=== PATIENT | male | born 1970 | race Caucasian/White ===

== ENCOUNTER 2020-01-26 09:25 | Emergency (ER) | payer MEDICARE, SELFPAY ==
[2020-01-26 09:26] VITALS: BP 131/88; PULSE 80; RESP 16; TEMP 36.8; BMI 32.8
--- NOTE | 2020-01-26 10:02 | CT_ITS ---
STUDY: CT ABDOMEN AND PELVIS WITH CONTRAST REASON FOR EXAM: Male, 49 years old. ABD PAIN and amp; DISTENTION -- LAST BM X3 WEEKS AGO, RECTAL PAIN RADIATION DOSAGE (If Supplied By Facility): CTDIvol = ( 15.22 ) mGy, DLP = ( 1283.83 ) mGycm TECHNIQUE: Transaxial images were obtained from the dome of the diaphragm to the symphysis pubis without oral contrast. Oral and amp; IV Gastrografin and amp; 100mL Isovue-300 was administered. Sagittal and coronal images were reconstructed. Individualized dose optimization techniques were used for this CT. COMPARISON: None. FINDINGS: The visualized lung bases are unremarkable. The visualized portions of the heart are within normal limits. Normal liver. Status post cholecystectomy. No significant dilatation of the extrahepatic biliary system. Normal spleen. Normal pancreas. Normal bilateral adrenal glands. Normal right kidney. Normal left kidney. Normal visualized stomach. Normal small intestine. 3.4 cm fatty nodule at the proximal ascending colon near the ileocecal valve. The appendix is visualized and appears normal. Normal abdominal aorta. Normal inferior vena cava. Normal retroperitoneum. Normal urinary bladder. Normal abdominal wall. Mild vertebral scoliosis. CT/Abdomen/Pelvis WITH Contrast IMPRESSION: No acute pathology of the abdomen and pelvis. Prominent fatty nodule within the colon near the ileocecal valve. Electronically Signed: Eloy Tlaavera DO at 13:06 EDT Tel [phone], Service support ,
--- NOTE | 2020-01-26 10:04 | ED.VIS.GEN ---
History of Present Illness Chief Complaint: Constipation Informant: Patient Narrative: Patient states that 3 weeks ago he went to outside hospital and they did nothing for me. He states that no tests were run and they did not give him anything. He tells me that his abdomen is distended. He states he has not had any bowel movement for 3 weeks. He denies any leakage of liquid. He states he has been passing gas. He reports being a diabetic. When I look at his bag of medications I see that on the he filled prescriptions of hydrocodone, Levaquin, and doxycycline from the outside hospital. He then states will maybe it has not been 3 weeks maybe it is only been a week. He apologizes and states he just does not know. He notes rectal pressure. I was able to obtained notes from the outside hospital. At that point he was complaining of discomfort in the scrotal region. Clinically had some mild tenderness to the testicles and was treated for orchitis using the Levaquin and doxycycline. Past Medical History - Allergies and Home Meds Allergies/Adverse Reactions: Allergies No Known Allergies Allergy (Verified 01/26/20 09:29) Primary Care Physician: Care Physician,No Primary [Primary Care Provider] - Review of Systems General: Denies: Chills, Fever, Sweats Eyes: Denies: Visual changes - bilaterally, Diplopia ENT: Denies: Rhinorrhea, Sore throat Cardiovascular: Denies: Chest pain, Palpitations Respiratory: Denies: Dyspnea, Cough, Dyspnea on exertion Gastrointestinal: Reports: Abdominal pain, Constipation. Denies: Nausea, Vomiting, Diarrhea, Melena, Hematochezia Genitourinary: Denies: Dysuria, Hematuria, Frequency Musculoskeletal: Denies: Back pain, Extremity Pain Skin: Denies: Rash, Wounds Neurological: Denies: Headache, Weakness, Numbness Physical Exam Vital Signs/Narrative: Vital Signs Temp Pulse Resp BP 01/26/20 09:26 98.3 F 80 16 131/88 H Inital Vital Signs reviewed: Yes General: Well nourished, Well developed, Obese, No Acute Distress Head: Normocephalic, Atraumatic Eyes: Perrl, EOMI ENT: Moist mucous membranes, No rhinorrhea Neck: Supple, Nontender Cardiovascular: Regular rate, Regular rhythm, No murmurs Respiratory: No distress, CTA bilaterally, Chest nontender Abdomen: Soft, Nontender, Normal bowel sounds, - - Abdomen feels distended. However there is no tympany to percussion. : - - Testicles appear normal in size and lie. There is no erythema. There are no masses. They are nontender. Back: Nontender, Normal Inspection Extremities: Nontender, No edema Skin: Normal color, No rash Neurological: Alert, Oriented x3, Cranial nerves II-XII grossly intact, Normal Strength, Normal Sensation Psychological: Normal affect, Normal Mood Diagnostic/Tx/Re-eval Clinical Impression(s) from Imaging Studies Abdomen/Pelvis CT 01/26/20 10:02 IMPRESSION: No acute pathology of the abdomen and pelvis. Prominent fatty nodule within the colon near the ileocecal valve. Electronically Signed: Eloy Talavera DO at 13:06 EDT Tel [phone], Service support , Laboratory Last Values WBC 9.9 K/mm3 (4.4-11.0) 01/26/20 10:20 RBC 5.10 M/mm3 (4.6-6.2) 01/26/20 10:20 Hgb 16.5 g/dL (13.0-16.5) 01/26/20 10:20 Hct 48.7 % (40-54) 01/26/20 10:20 MCV 95.5 fL (80-94) H 01/26/20 10:20 MCH 32.4 pg (27.0-32.0) H 01/26/20 10:20 MCHC 33.9 g/dL (32-36) 01/26/20 10:20 RDW Std Deviation 41.6 fl (35.1-43.9) 01/26/20 10:20 RDW Coeff of Kary 11.9 % (11.6-14.6) 01/26/20 10:20 Plt Count 207 K/mm3 (150-450) 01/26/20 10:20 MPV 9.9 fl (6.2-12.0) 01/26/20 10:20 Immature Gran % (Auto) 0.400 % (0.0-0.9) 01/26/20 10:20 Neut % (Auto) 45.2 % (47-70) L 01/26/20 10:20 Lymph % (Auto) 41.2 % (19-41) H 01/26/20 10:20 [place] % (Auto) 10.1 % (0-10) H 01/26/20 10:20 Eos % (Auto) 2.5 % (0-5) 01/26/20 10:20 Baso % (Auto) 0.6 % (0-1) 01/26/20 10:20 Absolute Neuts (auto) 4.5 X10^3/uL (2.0-7.7) 01/26/20 10:20 Absolute Lymphs (auto) 4.07 X10^3/uL (0.83-4.51) 01/26/20 10:20 Nucleated RBC % 0 % (0-5) 01/26/20 10:20 Sodium 136 mmol/L (136-145) 01/26/20 10:20 Potassium 4.2 mmol/L (3.5-5.1) 01/26/20 10:20 Chloride 102 mmol/L (98-107) 01/26/20 10:20 Carbon Dioxide 26.0 mmol/L (21.0-32.0) 01/26/20 10:20 Anion Gap 8 (5-15) 01/26/20 10:20 BUN 12 mg/dL (7-18) 01/26/20 10:20 Creatinine 0.85 mg/dL (0.70-1.30) 01/26/20 10:20 Estim Creat Clear Calc 102.82 ml/min 01/26/20 10:20 Est GFR (MDRD) Af Amer 123 mL/min (>60) 01/26/20 10:20 Est GFR (MDRD) Non-Af 102 mL/min (>60) 01/26/20 10:20 BUN/Creatinine Ratio 14.1 RATIO (10-20) 01/26/20 10:20 Glucose 287 mg/dL (74-106) H 01/26/20 10:20 Calcium 9.2 mg/dL (8.5-10.1) 01/26/20 10:20 Total Bilirubin 0.40 mg/dL (0.20-1.00) 01/26/20 10:20 AST 31 U/L (15-37) 01/26/20 10:20 ALT 70 U/L (16-61) H 01/26/20 10:20 Alkaline Phosphatase 61 U/L (45-117) 01/26/20 10:20 Total Protein 7.2 g/dL (6.4-8.2) 01/26/20 10:20 Albumin 3.6 g/dL (3.2-5.0) 01/26/20 10:20 Globulin 3.6 g/dL (2.2-4.2) 01/26/20 10:20 Albumin/Globulin Ratio 1.0 RATIO (0.9-2.4) 01/26/20 10:20 Lipase 203 U/L (73-393) 01/26/20 10:20 Urine Color Yellow (Yellow) 01/26/20 10:18 Urine Clarity Clear (Clear) 01/26/20 10:18 Urine pH 5.0 (5.0 - 8.0) 01/26/20 10:18 Ur Specific [place] 1.025 (1.002-1.030) 01/26/20 10:18 Urine Protein Negative mg/dl (Negative) 01/26/20 10:18 Urine Glucose (UA) 1000 mg/dl (Normal) H 01/26/20 10:18 Urine Ketones 5 mg/dl (Negative) H 01/26/20 10:18 Urine Occult Blood Negative /ul (Negative) 01/26/20 10:18 Urine Nitrite Negative (Negative) 01/26/20 10:18 Urine Bilirubin Negative mg/dL (Negative) 01/26/20 10:18 Urine Urobilinogen Normal mg/dl (Normal) 01/26/20 10:18 Ur Leukocyte Esterase Negative /ul (Negative) 01/26/20 10:18 Urine RBC 0 SEEN /hpf (0-5) 01/26/20 10:18 Urine WBC 0 SEEN /hpf (0-5) 01/26/20 10:18 Ur Squamous Epith Cells 0-5 SEEN /hpf (0-5) 01/26/20 10:18 Urine Bacteria 0 SEEN /hpf (None Seen) 01/26/20 10:18 Urine Mucus 0 SEEN /hpf (<or=2+) 01/26/20 10:18 - Medical Decision Making Basic labs were normal. Urinalysis normal. CT the abdomen pelvis is negative. Repeat examination the patient states he is feeling lower abdominal cramping. Think the patient needs to have a bowel movement. I will write for some magnesium citrate. Of asked that he follow-up with primary care. ED Disposition - Plan for ED Patient: Disposition: Home or Assisted Living Diagnosis: Abdominal pain, Constipation Instructions: ED Constipation Prescriptions: Magnesium Citrate [Citrate Of Magnesia] 300 ml PO X1 #2 bottle Prescription Printed Additional Instructions: Follow-up with your primary care if symptoms have not resolved after bowel movement
[2020-01-26] MEDS: 0.9% Normal Saline 1,000 ML 125 ML IV (10:21)
[2020-01-26 10:25] LABS: Absolute Lymphocyte Count 4.07 X10^3/uL (0.83-4.51); Absolute Neutrophil Count 4.5 X10^3/uL (2.0-7.7); Basophil# 0.06 X10^3/uL; Basophil% 0.6 % (0-1); Eosinophil# 0.25 X10^3/uL; Eosinophils% 2.5 % (0-5); Hematocrit 48.7 % (40-54); Hemoglobin 16.5 g/dL (13.0-16.5); Lymphocyte # 4.07 X10^3/ul (4.0); Lymphocyte % 41.2 % (19-41); Mean Corp Hgb Conc 33.9 g/dL (32-36); Mean Corpuscular Hgb 32.4 pg (27.0-32.0); Mean Corpuscular Volume 95.5 fL (80-94); Mean Platelet Vol. 9.9 fl (6.2-12.0); Monocyte% 10.1 % (0-10); NRBC Flagged by Analyzer 0 % (0-5); Neutrophil # 4.46 X10^3/uL (2.7-7.7); Neutrophil % 45.2 % (47-70); Platelet Count 207 K/mm3 (150-450); RBC Distribution Width CV 11.9 % (11.6-14.6); RBC Distribution Width SD 41.6 fl (35.1-43.9); White Blood Count 9.9 K/mm3 (4.4-11.0)
[2020-01-26 10:31] LABS: Bacteria 0 SEEN /hpf (None Seen); Mucous, Urine 0 SEEN /hpf (<or=2+); Red Blood Cells-Urine 0 SEEN /hpf (0-5); White Blood Cells 0 SEEN /hpf (0-5)
[2020-01-26 10:35] LABS: Color, Urine Yellow (Yellow); Glucose, Dipstick 1000 mg/dl (Normal); Ketone-Dipstick 5 mg/dl (Negative); Leukocyte Esterase-Dipstick Negative /ul (Negative); Nitrite-Dipstick Negative (Negative); Occult Blood-Urine Negative /ul (Negative); Protein-Dipstick Negative (Negative); Specific Gravity, Urine 1.025 (1.002-1.030); Urine Bilirubin Dipstick Negative (Negative); Urine Clarity Clear (Clear); Urine Urobilinogen Normal (Normal)
[2020-01-26 10:45] LABS: AST(SGOT) 31 U/L (15-37); Alanine Aminotransfer ALT/SGPT 70 U/L (16-61); Albumin, Serum 3.6 g/dL (3.2-5.0); Alkaline Phosphatase 61 U/L (45-117); Anion Gap 8 (5-15); BUN 12 mg/dL (7-18); BUN/Creat Ratio 14.1 RATIO (10-20); Calcium,Total 9.2 mg/dL (8.5-10.1); Chloride 102 mmol/L (98-107); Creatinine, Serum 0.85 mg/dL (0.70-1.30); EST Glomerular Filtration Rate 102 mL/min (>60); Est Glom Filt Rate - Afr Amer 123 mL/min (>60); Estimated Creatinine Clearance 102.82 ml/min; Globulin 3.6 g/dL (2.2-4.2); Glucose 287 mg/dL (74-106); Lipase 203 U/L (73-393); Potassium 4.2 mmol/L (3.5-5.1); Protein, Total 7.2 g/dL (6.4-8.2); Sodium Level 136 mmol/L (136-145)
[2020-01-26 10:48] LABS: Squamous Epithelial Cells - UA 0-5 SEEN /hpf (0-5)
[2020-01-26 11:16] VITALS: BP 139/98; PULSE 87; RESP 20; O2SAT 96
[2020-01-26 13:00] VITALS: BP 137/98; PULSE 91; RESP 18; O2SAT 97
== END 2020-01-26 13:45 | disposition home or self-care (01) ==
PROVIDERS: Emergency Provider Emergency Medicine
DX: K59.00 Constipation, unspecified (principal); R10.9 Unspecified abdominal pain; E11.9 Type 2 diabetes mellitus without complications; Z79.84 Long term (current) use of oral hypoglycemic drugs
CPT/HCPCS: 74177; 80053; 81001; 83690; 85025; 96360; 96361; 99283; J7030; Q9967

== ENCOUNTER 2021-01-01 09:44 | Emergency (ER) | payer MEDICARE, MEDICAID, SELFPAY ==
[2021-01-01 09:44] VITALS: BP 129/91; PULSE 92; RESP 24; TEMP 36; O2SAT 96; BMI 31.7
--- NOTE | 2021-01-01 10:16 | CT_ITS ---
STUDY: CT ABDOMEN AND PELVIS WITH CONTRAST REASON FOR EXAM: Male, 50 years old. Abd pain, diffuse RADIATION DOSAGE (If Supplied By Facility): CTDIvol = ( 17.87 ) mGy, DLP = ( 1246.23 ) mGycm TECHNIQUE: Transaxial images were obtained from the dome of the diaphragm to the symphysis pubis without oral contrast. IV 100mL Isovue-300 was administered. Sagittal and coronal images were reconstructed. Individualized dose optimization techniques were used for this CT. COMPARISON: Comparison is made with prior study dated 01/26/2020. FINDINGS: The visualized lung bases are unremarkable. The visualized portions of the heart are within normal limits. There is decreased attenuation of the liver consistent with steatosis. There are surgical clips in the gallbladder fossa consistent with a prior cholecystectomy. Borderline splenomegaly. Normal pancreas. Normal bilateral adrenal glands. Normal right kidney. Normal left kidney. Normal visualized stomach. Normal small intestine. Stable 3 cm x 3 cm rounded fat-containing nodular density in the cecum at the level of the ileocecal valve. This may represent a lipoma or villous adenoma. The appendix is visualized and appears normal. Normal abdominal aorta. Normal inferior vena cava. Normal retroperitoneum. Normal urinary bladder. Normal abdominal wall. Mild levoscoliosis. CT/Abdomen/Pelvis W IV Cont ONLY IMPRESSION: Stable 3 cm x 3 cm fat-containing nodule in the cecum at the level of the ileocecal valve. Clinical correlation is recommended. Electronically Signed: Zheng Alfaro MD at 11:26 EDT , Service support ,
--- NOTE | 2021-01-01 10:26 | EDS_ITS ---
HPI HPI - GI History of Present Illness Chief Complaint: Abd Pain Informant: patient Narrative Narrative: Patient is a 50-year-old male with history of hypertension, diabetes mellitus and hyperlipidemia presenting with abdominal distention and pain. Patient states he has had worsening distention and abdominal pain for the past 4 to 5 days. He states he feels short of breath and is not hungry because he still uncomfortable. He states the pain is diffuse but slightly worse on the right side. He is never had this happen before. He denies any nausea, vomiting or significant change in bowel habits. He notes he did have diarrhea couple days ago but it seems to resolved. [place] any black or blood in stool. Does not drink alcohol. Has had prior bilateral inguinal hernia repair remotely. Denies any fever or chills. Denies any chest pain but does feel like there is pressure because of his abdomen being distended. No other complaints at this time. [facility] Medical History (Updated 01/01/21 @ 13:[address] Irina Chicas, DO) Diabetes mellitus type 2 in obese Home Medications atorvastatin 20 mg PO QHS 01/26/20 [History Last Taken Unknown] fenofibrate nanocrystallized 145 mg PO DAILY 01/26/20 [History Last Taken Unknown] glimepiride 4 mg PO DAILY 01/26/20 [History Last Taken Unknown] lisinopril 2.5 mg PO DAILY 01/26/20 [History Last Taken Unknown] metformin 1,000 mg PO BID 01/26/20 [History Last Taken Unknown] dicyclomine 20 mg PO TID PRN #20 tab 01/01/21 [Rx Last Taken Unknown] ondansetron HCl [Zofran] 4 mg PO Q8H PRN #14 tab 01/01/21 [Rx Last Taken Unknown] Allergy/AdvReac Type Severity Reaction Status Date / Time No Known Allergies Allergy Verified 01/01/21 09:47 Surgical History (Updated 01/01/21 @ 10:20 by Tin Louise) History of cholecystectomy History of hernia repair History of uvulectomy Hx of tonsillectomy Social History Smoking Status: Never smoker EXAM Physical Exam Const Vital Signs: 01/01/21 09:44 Temperature 96.8 F L Temperature Source Temporal Pulse Rate 92 Respiratory Rate 24 H Blood Pressure 129/91 H Blood Pressure Mean 103 Pulse Ox 96 Oxygen Delivery Method Room Air [facility] Lab Data Labs: Laboratory Results - last 24 hr 01/01/21 01/01/21 01/01/21 10:30 10:30 10:30 WBC 8.8 RBC 5.05 Hgb 15.8 Hct 47.1 MCV 93.3 MCH 31.3 MCHC 33.5 RDW Std Deviation 40.4 RDW Coeff of Kary 11.8 Plt Count 225 MPV 9.5 Immature Gran % (Auto) 0.300 Neut % (Auto) 54.7 Lymph % (Auto) 33.0 [place] % (Auto) 9.0 Eos % (Auto) 2.3 Baso % (Auto) 0.7 Absolute Neuts (auto) 4.8 Absolute Lymphs (auto) 2.90 Nucleated RBC % 0 Sodium 135 L Potassium 4.1 Chloride 103 Carbon Dioxide 29.0 Anion Gap 3 L BUN 11 Creatinine 0.81 Estim Creat Clear Calc 110.32 Est GFR (MDRD) Af Amer 131 Est GFR (MDRD) Non-Af 108 BUN/Creatinine Ratio 13.6 Glucose 235 H Calcium 8.8 Total Bilirubin 0.60 Direct Bilirubin 0.18 AST 41 H ALT 85 H Alkaline Phosphatase 57 B-Natriuretic Peptide < 2.0 Total Protein 7.1 Albumin 3.7 Globulin 3.4 Lipase 78 Urine Color Urine Clarity Urine pH Ur Specific [place] Urine Protein Urine Glucose (UA) Urine Ketones Urine Occult Blood Urine Nitrite Urine Bilirubin Urine Urobilinogen Ur Leukocyte Esterase Urine RBC Urine WBC Ur Squamous Epith Cells Urine Bacteria Urine Mucus 01/01/21 10:41 WBC RBC Hgb Hct MCV MCH MCHC RDW Std Deviation RDW Coeff of Kary Plt Count MPV Immature Gran % (Auto) Neut % (Auto) Lymph % (Auto) [place] % (Auto) Eos % (Auto) Baso % (Auto) Absolute Neuts (auto) Absolute Lymphs (auto) Nucleated RBC % Sodium Potassium Chloride Carbon Dioxide Anion Gap BUN Creatinine Estim Creat Clear Calc Est GFR (MDRD) Af Amer Est GFR (MDRD) Non-Af BUN/Creatinine Ratio Glucose Calcium Total Bilirubin Direct Bilirubin AST ALT Alkaline Phosphatase B-Natriuretic Peptide Total Protein Albumin Globulin Lipase Urine Color Yellow Urine Clarity Clear Urine pH 5.0 Ur Specific [place] 1.025 Urine Protein Negative Urine Glucose (UA) 1000 H Urine Ketones 5 H Urine Occult Blood Negative Urine Nitrite Negative Urine Bilirubin Negative Urine Urobilinogen Normal Ur Leukocyte Esterase Negative Urine RBC 0 SEEN Urine WBC 0 SEEN Ur Squamous Epith Cells 0 SEEN Urine Bacteria 0 SEEN Urine Mucus 0 SEEN Radiography Diagnostic Testing: Radiology Impression Abdomen/Pelvis CT 01/01/21 10:16 IMPRESSION: Stable 3 cm x 3 cm fat-containing nodule in the cecum at the level of the ileocecal valve. Clinical correlation is recommended. Electronically Signed: Zheng Alfaro MD at 11:26 EDT , Service support , Discharge Plan Triage Chief Complaint: Abd Pain ED Provider: Irina Chicas Dx/Rx/DC Orders Clinical Impression: Abdominal pain Instructions: ED Unknown Causes of Abdominal ... Prescriptions: New ondansetron HCl [Zofran] 4 mg tablet 4 mg PO Q8H PRN (Reason: nausea and vomiting) Qty: 14 RF: 0 dicyclomine 20 mg tablet 20 mg PO TID PRN (Reason: abdominal pain ) Qty: 20 RF: 0 No Action atorvastatin 20 MG tablet 20 mg PO QHS RF: 0 metformin 1,000 MG tablet 1,000 mg PO BID RF: 0 glimepiride 4 MG tablet 4 mg PO DAILY RF: 0 lisinopril 2.5 MG tablet 2.5 mg PO DAILY RF: 0 fenofibrate nanocrystallized 145 MG tablet 145 mg PO DAILY RF: 0 Primary Care Provider: Bandar Wooten Referrals: Bandar Wooten MD [Primary Care Provider] - Norma Hernandez MD [STAFF PHYSICIAN] - Activity Restrictions/Additional Instructions: Please follow-up with the surgeon you were referred to today for further evaluation of a mass in your colon. Follow with your primary care doctor for further control of your blood glucose. Disposition Disposition: Home, self care
[2021-01-01 10:37] LABS: Absolute Neutrophil Count 4.8 X10^3/uL (2.0-7.7); Basophil# 0.06 X10^3/uL; Basophil% 0.7 % (0-1); Eosinophils% 2.3 % (0-5); Hematocrit 47.1 % (40-54); Hemoglobin 15.8 g/dL (13.0-16.5); Mean Corp Hgb Conc 33.5 g/dL (32-36); Mean Corpuscular Hgb 31.3 pg (27.0-32.0); Mean Corpuscular Volume 93.3 fL (80-94); Mean Platelet Vol. 9.5 fl (6.2-12.0); Monocyte# 0.79 X10^3/uL; NRBC Flagged by Analyzer 0 % (0-5); Neutrophil # 4.82 X10^3/uL (2.7-7.7); Neutrophil % 54.7 % (47-70); Platelet Count 225 K/mm3 (150-450); RBC Distribution Width CV 11.8 % (11.6-14.6); RBC Distribution Width SD 40.4 fl (35.1-43.9); Red Blood Count 5.05 M/mm3 (4.6-6.2); White Blood Count 8.8 K/mm3 (4.4-11.0)
[2021-01-01] MEDS: Morphine 4 MG/ML Syringe IV (10:38)
[2021-01-01] MEDS: Ondansetron 4 MG/2 ML Vial IM (10:38)
[2021-01-01 10:48] LABS: Bacteria 0 SEEN /hpf (None Seen); Color, Urine Yellow (Yellow); Glucose, Dipstick 1000 mg/dl (Normal); Ketone-Dipstick 5 mg/dl (Negative); Leukocyte Esterase-Dipstick Negative /ul (Negative); Mucous, Urine 0 SEEN /hpf (<or=2+); Nitrite-Dipstick Negative (Negative); Occult Blood-Urine Negative /ul (Negative); Protein-Dipstick Negative (Negative); Red Blood Cells-Urine 0 SEEN /hpf (0-5); Specific Gravity, Urine 1.025 (1.002-1.030); Squamous Epithelial Cells - UA 0 SEEN /hpf (0-5); Urine Bilirubin Dipstick Negative (Negative); Urine Clarity Clear (Clear); Urine Urobilinogen Normal (Normal); White Blood Cells 0 SEEN /hpf (0-5)
[2021-01-01 10:55] LABS: AST(SGOT) 41 U/L (15-37); Alanine Aminotransfer ALT/SGPT 85 U/L (16-61); Albumin, Serum 3.7 g/dL (3.2-5.0); Alkaline Phosphatase 57 U/L (45-117); Anion Gap 3 (5-15); BUN 11 mg/dL (7-18); BUN/Creat Ratio 13.6 RATIO (10-20); Bilirubin, Direct 0.18 mg/dL (0.00-0.30); Calcium,Total 8.8 mg/dL (8.5-10.1); Chloride 103 mmol/L (98-107); Creatinine, Serum 0.81 mg/dL (0.70-1.30); EST Glomerular Filtration Rate 108 mL/min (>60); Est Glom Filt Rate - Afr Amer 131 mL/min (>60); Estimated Creatinine Clearance 110.32 ml/min; Globulin 3.4 g/dL (2.2-4.2); Glucose 235 mg/dL (74-106); Lipase 78 U/L (73-393); Potassium 4.1 mmol/L (3.5-5.1); Protein, Total 7.1 g/dL (6.4-8.2); Sodium Level 135 mmol/L (136-145)
[2021-01-01 10:56] LABS: BNP,B-Type NATRIURETIC PEPTIDE < 2.0 pg/mL (0-100)
[2021-01-01] MEDS: 0.9% Normal Saline 1,000 ML 150 ML IV (11:00)
[2021-01-01 13:17] VITALS: BP 124/93; PULSE 85; RESP 20; O2SAT 95
== END 2021-01-01 13:43 | disposition home or self-care (01) ==
PROVIDERS: Emergency Provider Emergency Medicine; PCP Family Medicine
DX: R10.9 Unspecified abdominal pain (principal); R06.02 Shortness of breath; I10 Essential (primary) hypertension; E11.9 Type 2 diabetes mellitus without complications; E78.5 Hyperlipidemia, unspecified; E66.9 Obesity, unspecified; Z79.899 Other long term (current) drug therapy; Z79.84 Long term (current) use of oral hypoglycemic drugs
CPT/HCPCS: 74177; 80048; 80076; 81001; 83690; 83880; 85025; 96361; 96372; 96374; 99283; J7030; Q9967; A4216; J2405

== ENCOUNTER 2021-01-28 08:25 | Day surgery (SDC) | payer MEDICARE, MEDICAID, SELFPAY ==
[2021-01-13 12:16] VITALS: BMI 32.3
[2021-01-28] VITALS (8 sets, daily range): BP systolic 102–122; BP diastolic 73–88; PULSE 86–92; RESP 16–20; TEMP 36.3–36.7; O2SAT 94–97; BMI 32.7
--- NOTE | 2021-01-28 08:55 | HP.PCM_ITS ---
History and Physical Date of Admission: 01/28/21 Date of Service:? 01/13/21 MR#:[id number] Acct:[id number] Name:STEPHANIE MERCADO :1970 Age/Sex:?50/M ? Provider:Dr. Norma Hernandez MD Rep #:[id number] Location:[facility] Status:Signed Intake Vital Signs ? 01/14/2112:16 Height 5 ft 8 in Weight: 213 lb 2 oz BMI 32.3 BP 125/89 H Blood Pressure Location Lt brachial Position Sitting Respiration 20 H Pulse 102 H Pulse Source NIBP Temp 98.3 F Temp Source Temporal Pulse Oximetry (%) 95 Oxygen Delivery Method room air Intake Visit Reasons:?HOSPITAL F/U Chief Complaint: cecal mass/ abd pain/ constipation Configuration Management Advisor Required: No Is patient in pain?: Yes (entire abdomen) Pain scale (1-10): 8 Allergies No Known Allergies Allergy (Verified 01/13/21 12:29) Medications atorvastatin 20 mg PO QHS 01/26/20 [History Confirmed 01/13/21] fenofibrate nanocrystallized 145 mg PO DAILY 01/26/20 [History Confirmed 01/13/21] glimepiride 4 mg PO DAILY 01/26/20 [History Confirmed 01/13/21] lisinopril 2.5 mg PO DAILY 01/26/20 [History Confirmed 01/13/21] metformin 1,000 mg PO BID 01/26/20 [History Confirmed 01/13/21] dicyclomine 20 mg PO TID PRN #20 tab 01/01/21 [Rx Confirmed 01/13/21] ondansetron HCl [Zofran] 4 mg PO Q8H PRN #14 tab 01/01/21 [Rx Confirmed 01/13/21] insulin glargine 100 unit/mL (3 mL) subcutaneous pen 30 unit SUBCUT DAILY? ml 01/13/21 [History Confirmed 01/13/21] olanzapine 10 mg tablet 10 mg PO QHS? tab 01/13/21 [History Confirmed 01/13/21] PFSH Medical History?(Updated 01/13/21 @ 13:[address] Norma Hernandez MD) Anxiety and depression Bipolar 1 disorder Developmental disability Diabetes mellitus type 2 in obese Hyperlipidemia Hypersomnia Rosacea Surgical History?(Updated 01/13/21 @ 13:[address] Norma Hernandez MD) History of cholecystectomy History of hernia repair History of uvulectomy Hx of tonsillectomy Family History?(Updated 01/13/21 @ 12:28 by Tanja Mcwilliams) Mother DiabetesFather Heart disease Diabetes Social History? Smoking Status:? Never smoker HPI HPI HPI: STEPHANIE KEYES, is a 50 M who presents to the office today for Abnormal CT of the abdomen.? CT showed a likely lipoma in the cecum.? Patient's previous CTs has also shown this.? Patient denies ever having an EGD or colonoscopy in the past.? When asked if patient has any abdominal pain he says he does have diffuse abdominal pain currently rates at a 7/10 is sitting comfortably currently.? Kortney ent states she he can be 8?9/10 occasionally.? Patient states he eats 2 meals a day which is normal for him and the pain does not stop him from eating.? Patient does admit to having reflux daily he is not on any medications for this.? Patient states that he has not really had a bowel movement for a week or [address] of the pelvis did not show constipation.? Also when asked further patient states that he does have some small liquidy bowel movements daily.? Patient denies any family history of colon cancer. ROS General General: Yes weight change, appetite and fatigue Gastro Gastrointestinal: Yes abdominal pain, No nausea or vomiting, No diarrhea, Yes constipation, No blood in stool, Yes acid reflux, No hemorrhoids, No ulcers, No gallbladder problem and No black,tarry stools Exam Const General: cooperative, healthy appearing, comfortable and no acute distress Neck Neck: normal visual inspection Resp Effort & Inspection: normal respiratory effort Cardio Rate: regular rate GI Inspection: non-distended Palpation: soft, no guarding and tender (mild Bilateral LQ, LUQ, no PS) Skin General: no rashes or lesions noted Neuro General: patient oriented x3 Psych Affect: normal affect COVID (Procedure Consent) Procedure Criteria Procedure Criteria: Yes Elective?The surgeon/proceduralist and patient have discussed in detail the risk of exposure to and/or potential harm posed by the COVID-19 virus with having a surgery/procedure at this time versus the risk of? delaying the surgery/procedure. It is not possible to know either the risk of delaying the surgery or procedure or chance of getting an infection with perfect accuracy, but a joint decision was made between the patient and the surgeon/proceduralist ?to proceed at this time with the scheduled surgery/procedure as indicated on the consent form. Assessment and Plan Assessment and Plan (1) Abnormal CT of the abdomen: ?Status:?Acute (2) Lipoma of colon: ?Status:?Acute (3) GERD (gastroesophageal reflux disease): ?Status:?Acute ?Plan - Dr. Norma Hernandez MD: Plan to give patient a prescription for Protonix for his reflux also patient co mplains of abdominal bloating.? Did review patient CT abdomen pelvis with the patient and his mom and pointed out the area in the cecum appears to be a lipoma.? Discussed with plan to try to remove this endoscopically discussed if I am unable to may refer to another GI doctor who would probably be able to remove it endoscopy. I have discussed the above with the patient. I have offered the patient EGD and colonoscopy for evaluation. I have explained the risks/benefits of the procedure and described the procedure.? I have discussed the risks with the patient, including but not limited to:? infection, bleeding, perforation of the GI tract requiring emergency surgery, inability to complete the procedure, injury to any internal organs, complications of anesthesia, etc. - the patient understands and agrees to proceed. I have answered all the patient's questions to the patient's satisfaction and the patient has no further questions. The patient has been given instructions for the colon cleansing preparation.Today clears magnesium citrate the first day and MiraLAX prep the second Norma Hernandez M.D. Pager: [phone] [facility] [address] [place] [address], [facility], [address] [place] [id number] Office: [phone] Plan Details Other Orders: ?Orders: ? Colonoscopy Today ? ? ? EGD Today ? ? Coding Level of Care Code Off vis,new,level [address] of the abdomen? R93.5 Lipoma of colon? D17.5 GERD (gastroesophageal reflux disease)? K21.9 01/13/21 1338 <Electronically signed by Norma Hernandez MD> Date Norma Hernandez MD
[2021-01-28] MEDS: Lactated Ringers 1,000 ML 100 ML IV (09:14)
[2021-01-28 09:26] LABS: Bedside Glucose 159 mg/dL (70-110)
--- NOTE | 2021-01-28 09:30 | IMM_PTH ---
PATIENT: STEPHANIE KEYES LOC: EN U#:[id number] AGE/SX: 50/M ROOM: RE01/28/[address]: Dr. Norma Hernandez MD : 1970 BED: DIS: 01/28/2021 SPEC #: [id number] RECD: 01/28/21 13:52 STATUS: ROBERTO REQ #: [id number] TAYLA: 01/28/21 09:[address]: Norma Hernandez DEPT: IMMUNOHISTOCHEMISTRY RECD BY: Savanna Blanc ENTERED: 01/28/21 13:53 SP TYPE: IMMUNO OTHR DR: Dr. Bandar Wooten MD Tissues: A - Stomach, NOS Procedures: H Pylori (initial) PHYSICIAN & INSTITUTION [place] [id number] SPECIMEN INFORMATION: Tissue Source: A ? Antrum biopsy Clinical Info: Abnormal CT abdomen; lipoma of colon; GERD Specimen Number: [id number] CPT code: 73009 METHODOLOGY: Deparaffinized sections of prefer/formalin-fixed tissue or PAP/DQ stained slides are incubated with monoclonal/polyclonal antibodies/oligonucleotide probes. Localization is made via biotin free immunoperoxidase method. Appropriate controls are performed and reacted as expected. Results on target cell population are indicated in the following table: RESULTS: ANTIBODY / CLONE RESULT Block A H Pylori (polyclonal) negative These tests were developed and their performance characteristics determined by [facility]. They may not have been cleared or approved by the U.S. Food and Drug Administration. The FDA has determined that such clearance or approval is not necessary. INTERPRETATION: A. Antrum biopsy: Negative for Helicobacter pylori organisms. AM:mitzi 01/30/2021
--- NOTE | 2021-01-28 09:30 | EGD_PTH ---
PATIENT: STEPHANIE KEYES LOC: EN U#:[id number] AGE/SX: 50/M ROOM: RE01/28/[address]: Dr. Norma Hernandez MD : 1970 BED: DIS: 01/28/2021 SPEC #: [id number] RECD: 01/28/21 11:11 STATUS: ROBERTO JENARO #: [id number] TAYLA: 01/28/21 09:[address]: Norma Hernandez DEPT: SURGICAL PATHOLOGY RECD BY: Kelly Merino ENTERED: 01/28/21 13:03 SP TYPE: EGD BIOPSY OTHR DR: Dr. Bandar Wooten MD Tissues: A - Gastric mucous membrane B - Gastric mucous membrane C - Cecum, NOS D - Cecum, NOS E - Rectum, NOS Procedures: Special Stain Group II Surgery Specimen Level IV Alcian Blue/PAS (control) HEADER OPERATION: Colonoscopy, EGD ([facility] – [place]) PRE-OP DIAGNOSIS: Abnormal CT abdomen; lipoma of colon; GERD TISSUE SUBMITTED: A - Antrum biopsy for H. pylori and path, B - GE junction, C - Biopsy of ileocecal valve mass, D - Cecal polyp, E - Rectum polyp MICROSCOPIC DIAGNOSIS A. Gastric antrum, biopsy: Chronic gastritis. See comment. B. Gastroesophageal junction, biopsy: Mild chronic inflammation. No evidence of goblet cell metaplasia. See comment. C. Ileocecal valve mass, biopsy: Polypoid fragment of benign colonic mucosa with mild reactive change. D. Cecal polyp, biopsy: Inflammatory polyp with focal mucosal ulceration. E. Rectal polyp, biopsy: Hyperplastic polyp. AM:mitzi 01/29/2021 COMMENT A. The results of immunohistochemistry for Helicobacter pylori will be reported separately ([id number]). B. Alcian blue/PAS stain with matched control supports the above diagnosis. MICROSCOPIC DESCRIPTION Slides are reviewed. GROSS DESCRIPTION A - Received in fixative is one container labeled with the patient's name and designated antrum biopsy. The specimen consists of one irregular fragment of light sosa soft tissue that measures 0.3 x 0.2 x 0.1 cm. The specimen is totally submitted in one cassette. B - Received in fixative is one container labeled with the patient's name and designated GE junction. The specimen consists of one irregular fragment of light sosa soft tissue that measures 0.3 x 0.3 x 0.1 cm. The specimen is totally submitted in one cassette. C - Received in fixative is one container labeled with the patient's name and designated biopsy of ileocecal valve mass. The specimen consists of multiple irregular fragments of light sosa soft tissue that in aggregate measure 1.5 x 0.5 x 0.1 cm. The specimen is totally submitted in one cassette. D - Received in fixative is one container labeled with the patient's name and designated cecal polyp. The specimen consists of a pink-red polyp measuring 1.2 x 1 x 0.7 cm. The apparent base is inked. The polyp is serially sectioned and submitted entirely in one cassette. E - Received in fixative is one container labeled with the patient's name and designated rectum polyp. The specimen consists of one irregular fragment of light sosa soft tissue that measures 0.3 x 0.3 x 0.2 cm. The specimen is totally submitted in one cassette. / SJ:rg 01/28/21 TC:3 CPT: 81064 x5, 05645
--- NOTE | 2021-01-28 10:27 | OP.COLON_ITS ---
Patient Name: Estevan Swan Procedure Date: 01/28/2021 9:33 AM Date of : 1970 Age: 50 Procedure: Colonoscopy Indications: Abnormal CT of the GI tract Providers: Norma Hernandez MD Referring MD: Bandar Wooten Medicines: Monitored Anesthesia Care Patient Profile: This is a 50 year old male. Last Colonoscopy: none. The patient's first colonoscopy is today. Complications: No immediate complications. Procedure: Pre-Anesthesia Assessment: - Prior to the procedure, a History and Physical was performed, and patient medications and allergies were reviewed. The patient's tolerance of previous anesthesia was also reviewed. The risks and benefits of the procedure and the sedation options and risks were discussed with the patient. All questions were answered, and informed consent was obtained. Prior Anticoagulants: The patient has taken no previous anticoagulant or antiplatelet agents. ASA Grade Assessment: Per anesthesia. After reviewing the risks and benefits, the patient was deemed in satisfactory condition to undergo the procedure. After I obtained informed consent, the scope was passed under direct vision. Throughout the procedure, the patient's blood pressure, pulse, and oxygen saturations were monitored continuously. The Colonoscope was introduced through the anus and advanced to the terminal ileum. The colonoscopy was performed without difficulty. The patient tolerated the procedure well. The quality of the bowel preparation was good. Scope In: 9:34:20 AM Scope Withdrawal Time 0 hours 26 minutes 55 seconds Scope Out: 10:10:25 AM Total Procedure Duration Time 0 hours 36 minutes 5 seconds Findings: The perianal and digital rectal examinations were normal. Two semi-pedunculated polyps were found in the rectum and cecum. The polyps were 3 to 15 mm in size. These polyps were removed with a hot snare. Resection and retrieval were complete. 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 Biopsies were taken with a cold forceps for histology, fat was seen protruding through the mucosa. The terminal ileum appeared normal. The exam was otherwise without abnormality on direct and retroflexion views. Impression: - Two 3 to 15 mm polyps in the rectum and in the cecum, removed with a hot snare. Resected and retrieved. 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 Biopsied. - The examined portion of the ileum was normal. - The examination was otherwise normal on direct and retroflexion views. Recommendation: - Discharge patient to home. - Resume previous diet. - Continue present medications. - Await pathology results. - Repeat colonoscopy at appointment to be scheduled. - Refer to a procedural nurse at appointment to be scheduled for removal of broad based lipoma at the ileocecal valve. Procedure Code(s): --- Professional --- 37077, Colonoscopy, flexible; with removal of tumor(s), polyp(s), or other lesion(s) by snare technique 76339, 59, Colonoscopy, flexible; with biopsy, single or multiple Diagnosis Code(s): --- Professional --- K62.1, Rectal polyp D12.0, Benign neoplasm of cecum D17.5, Benign lipomatous neoplasm of intra-abdominal organs R93.3, Abnormal findings on diagnostic imaging of other parts of digestive tract CPT copyright 2017 [employer]. All rights reserved. The codes documented in this report are preliminary and upon hris administrator review may be revised to meet current compliance requirements. MD Norma Licea MD 01/28/2021 10:27:13 AM This report has been signed electronically. Number of Addenda: 0 Note Initiated On: 01/28/2021 9:33 AM
--- NOTE | 2021-01-28 10:27 | OP.CCLET_ITS ---
01/28/2021 Bandar Wooten Re : Colonoscopy procedure for Estevan Wooten This procedure was performed on Thursday, January 28, 2021. My impressions and recommendations are as follows: Impressions : - Two 3 to 15 mm polyps in the rectum and in the cecum, removed with a hot snare. Resected and retrieved. 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 Biopsied. - The examined portion of the ileum was normal. - The examination was otherwise normal on direct and retroflexion views. Recommendations : - Discharge patient to home. - Resume previous diet. - Continue present medications. - Await pathology results. - Repeat colonoscopy at appointment to be scheduled. - Refer to a mechanical energy engineer at appointment to be scheduled for removal of broad based lipoma at the ileocecal valve. My findings are described in the full procedure note, which is enclosed. If I can be of further assistance, please feel free to contact me at Doctor phone number(s): , Work: . Sincerely, MD Norma Licea MD 01/28/2021 10:27:13 AM This report has been signed electronically.
--- NOTE | 2021-01-28 10:29 | OP.EGD_ITS ---
Patient Name: Estevan Swan Procedure Date: 01/28/2021 9:02 AM Date of : 1970 Age: 50 Procedure: Upper GI endoscopy Indications: Heartburn Providers: Norma Hernandez MD Referring MD: Bandar Wooten Medicines: Monitored Anesthesia Care Patient Profile: This is a 50 year old male. Complications: No immediate complications. Procedure: Pre-Anesthesia Assessment: - Prior to the procedure, a History and Physical was performed, and patient medications and allergies were reviewed. The patient's tolerance of previous anesthesia was also reviewed. The risks and benefits of the procedure and the sedation options and risks were discussed with the patient. All questions were answered, and informed consent was obtained. Prior Anticoagulants: The patient has taken no previous anticoagulant or antiplatelet agents. ASA Grade Assessment: Per anesthesia. After reviewing the risks and benefits, the patient was deemed in satisfactory condition to undergo the procedure. After obtaining informed consent, the endoscope was passed under direct vision. Throughout the procedure, the patient's blood pressure, pulse, and oxygen saturations were monitored continuously. The gastroscope was introduced through the mouth, and advanced to the second part of duodenum. The upper GI endoscopy was accomplished without difficulty. The patient tolerated the procedure well. Scope In: 9:25:48 AM Scope Out: 9:32:02 AM Total Procedure Duration Time 0 hours 6 minutes 14 seconds Findings: The Z-line was variable and was found 40 cm from the incisors. Biopsies were taken with a cold forceps for histology. The examined duodenum was normal. Striped moderately erythematous mucosa without bleeding was found in the gastric antrum. Biopsies were taken with a cold forceps for histology. Biopsies were taken with a cold forceps for Helicobacter pylori cultures. Biopsies were taken with a cold forceps for Helicobacter pylori testing using a rapid urease test. The cardia and gastric fundus were normal on retroflexion. Impression: - Z-line variable, 40 cm from the incisors. Biopsied. - Normal examined duodenum. - Erythematous mucosa in the antrum. Biopsied. Recommendation: - Await pathology results. - Discharge patient to home. - Resume previous diet. - Continue present medications. - Await pathology results. Procedure Code(s): --- Professional --- 13293, Esophagogastroduodenoscopy, flexible, transoral; with biopsy, single or multiple Diagnosis Code(s): --- Professional --- K22.8, Other specified diseases of esophagus K31.89, Other diseases of stomach and duodenum R12, Heartburn CPT copyright 2017 [employer]. All rights reserved. The codes documented in this report are preliminary and upon architectural technologist review may be revised to meet current compliance requirements. MD Norma Licea MD 01/28/2021 10:29:50 AM This report has been signed electronically. Number of Addenda: 0 Note Initiated On: 01/28/2021 9:02 AM
--- NOTE | 2021-01-28 10:30 | OP.CCLET_ITS ---
01/28/2021 Bandar Wooten Re : Upper GI endoscopy procedure for Estevan Wooten This procedure was performed on Thursday, January 28, 2021. My impressions and recommendations are as follows: Impressions : - Z-line variable, 40 cm from the incisors. Biopsied. - Normal examined duodenum. - Erythematous mucosa in the antrum. Biopsied. Recommendations : - Await pathology results. - Discharge patient to home. - Resume previous diet. - Continue present medications. - Await pathology results. My findings are described in the full procedure note, which is enclosed. If I can be of further assistance, please feel free to contact me at Doctor phone number(s): , Work: . Sincerely, MD Norma Licea MD 01/28/2021 10:29:50 AM This report has been signed electronically.
== END 2021-01-28 11:15 ==
LOC: EN 08:26 → AC 08:27
PROVIDERS: PCP Family Medicine; Referring Provider Family Medicine; Visit Provider Surgery
PROC: 0DJD8ZZ Inspection of Lower Intestinal Tract, Via Natural or Artificial Opening Endoscopic (ICD-10-PCS; CPT 45378; principal; 2021-01-28 09:25)
DX: K29.50 Unspecified chronic gastritis without bleeding (principal); K21.00 Gastro-esophageal reflux disease with esophagitis, without bleeding; K63.5 Polyp of colon; K62.1 Rectal polyp; F41.9 Anxiety disorder, unspecified; F32.9 Major depressive disorder, single episode, unspecified; E11.9 Type 2 diabetes mellitus without complications; E78.5 Hyperlipidemia, unspecified; E66.9 Obesity, unspecified; Z68.32 Body mass index [BMI] 32.0-32.9, adult; Z79.4 Long term (current) use of insulin; Z79.899 Other long term (current) drug therapy
CPT/HCPCS: 43239; 45380; 82962; 87426; 88305; 88313; 88342; J7120; J2405

== ENCOUNTER 2021-03-25 11:06 | Emergency (ER) | payer MEDICARE, MEDICAID, SELFPAY ==
[2021-01-28 09:03] VITALS: BMI 32.7
[2021-03-25 11:07] VITALS: BP 117/86; PULSE 126; RESP 18; TEMP 35.7; O2SAT 94; BMI 30.2
--- NOTE | 2021-03-25 11:36 | EDS_ITS ---
HPI History of Present Illness Chief Complaint: Male Pain/Injury Narrative Narrative: Patient presenting with suprapubic abdominal pain which she has had for 4 months. Patient states the pain is intermittent. Last night it kept him awake. Patient states he was recently seen by Dr. Rubio and was going to have a testicular ultrasound outpatient. He states the pain is in his suprapubic area and radiates to his scrotum. He denies scrotal pain. He has had previous ultrasound which showed a cyst on his testicle. Patient also states that he has been having difficulty urinating. He denies dysuria or hematuria. [facility] Medical History Anxiety and depression Bipolar 1 disorder Chest pain Developmental disability Diabetes mellitus type 2 in obese Dietary restriction Heartburn High cholesterol Hx of abdominal pain Hyperlipidemia Hypersomnia Hypertension Insulin dependent diabetes mellitus Non-smoker Polyp of colon Rosacea Wears glasses Home Medications atorvastatin 20 mg PO QHS 01/26/20 [History Last Taken Unknown] fenofibrate nanocrystallized 145 mg PO DAILY 01/26/20 [History Last Taken Unknown] glimepiride 4 mg PO DAILY 01/26/20 [History Last Taken 01/28/21 04:30] lisinopril 2.5 mg PO DAILY 01/26/20 [History Last Taken Unknown] metformin 1,000 mg PO BID 01/26/20 [History Last Taken 01/28/21 04:30] dicyclomine 20 mg PO TID PRN #20 tab 01/01/21 [Rx Last Taken Unknown] ondansetron HCl [Zofran] 4 mg PO Q8H PRN #14 tab 01/01/21 [Rx Last Taken Unknown] insulin glargine 100 unit/mL (3 mL) subcutaneous pen 30 unit SUBCUT DAILY ml 01/13/21 [History Last Taken Unknown] olanzapine 10 mg tablet 10 mg PO QHS tab 01/13/21 [History Last Taken Unknown] pantoprazole 40 mg tablet,delayed release 40 mg PO DAILY #30 tab 01/19/21 [Rx Last Taken Unknown] sucralfate 1 g PO 4X/DAY #56 tab 01/28/21 [Rx Last Taken Unknown] levofloxacin 500 mg PO DAILY #19 tab 03/25/21 [Rx Last Taken Unknown] Allergy/AdvReac Type Severity Reaction Status Date / Time No Known Allergies Allergy Verified 03/25/21 11:06 Family History Mother Diabetes Father Heart disease Diabetes Surgical History History of cholecystectomy History of hernia repair History of uvulectomy Hx of tonsillectomy Social History Smoking Status: Never smoker ROS ROS ED Constitutional Constitutional ED: Denies chills or fever(s) Eyes Eyes: Denies blurry vision or change in vision ENT ENT ED: Denies rhinorrhea or sore throat Cardiovascular Cardiovascular: Denies chest pain or palpitations Respiratory/Chest Respiratory/Chest: Denies cough or dyspnea Gastrointestinal Gastrointestinal: Reports abdominal pain and constipation; Denies nausea or vomiting Genitourinary Genitourinary ED: Reports other Details: Difficulty urinating. ; Denies dysuria or hematuria Musculoskeletal Musculoskeletal: Denies arthralgias or myalgias Integumentary Denies abscess or rash Neurologic Neurologic: Denies headache(s) or paresthesias Psychiatric Psychiatric: Denies anxiety or depression EXAM Physical Exam Const Vital Signs: 03/25/21 11:07 Temperature 96.2 F L Temperature Source Temporal Pulse Rate 126 H Respiratory Rate 18 Blood Pressure 117/86 H Blood Pressure Mean 96 Pulse Ox 94 Oxygen Delivery Method Room Air Positive obese General Appearance ED: NAD Nutritional Appearance: obese HEENT Reports moist mucous membranes normocephalic and atraumatic Eyes PERRL Resp normal respiratory effort and clear to auscultation bilaterally Cardio regular rhythm Rate: tachycardic GI GI Narrative: Tenderness to palpation in the midline suprapubic area. Bladder / Kidney Exam: No CVA tenderness Penis: normal penis Scrotum: testes descended bilaterally and cremasteric reflex present; Negative for tenderness, erythema, ecchymosis, edematous or scrotal swelling Testes: testicular lie normal; Negative for testicular tenderness, blue dot sign or high-riding testicle Neuro oriented x3 Sensorium / Orientation: alert and oriented to person Psych mental status grossly normal Skin Lesions: no lesions Rashes: no rashes MDM MDM MDM Narrative Medical decision making narrative: Patient presenting with suprapubic pain and stating that he has difficulty with urination. I attempted to obtain a urinalysis however the patient states that he could not urinate. He requested a Lindo catheter even on the bladder scan showed minimal urine in the bladder. Urinalysis was obtained and is negative for infection. CBC shows a white blood cell count of 9.2, hemoglobin 16.5, hematocrit 47.4, platelets 220. Renal function electrolytes are normal. Glucose is elevated at 335 but there is no anion gap. Patient had CT of the abdomen pelvis with IV contrast which shows a stable 3 x 3 cm fat-containing nodular density in the cecum. Ultrasound of the testicles shows right epididymitis. Patient will be started on Levaquin for home. He is given first dose in the ED. He will follow up with Dr. Rubio. Patient stable for discharge at this time. Impression: 1. Right epididymitis 2. Abdominal pain 3. Concern for urinary retention Lab Data Labs: Laboratory Results - last 24 hr 03/25/21 03/25/21 03/25/21 11:46 11:46 12:57 WBC 9.2 RBC 5.14 Hgb 16.5 Hct 47.4 MCV 92.2 MCH 32.1 H MCHC 34.8 RDW Std Deviation 38.9 RDW Coeff of Kary 11.6 Plt Count 220 MPV 9.7 Immature Gran % (Auto) 0.300 Neut % (Auto) 67.7 Lymph % (Auto) 22.2 Piatt % (Auto) 8.5 Eos % (Auto) 1.0 Baso % (Auto) 0.3 Absolute Neuts (auto) 6.2 Absolute Lymphs (auto) 2.03 Nucleated RBC % 0 Sodium 135 L Potassium 4.0 Chloride 103 Carbon Dioxide 27.0 Anion Gap 5 BUN 14 Creatinine 0.94 Estim Creat Clear Calc 88.88 Est GFR (MDRD) Af Amer 110 Est GFR (MDRD) Non-Af 91 BUN/Creatinine Ratio 14.9 Glucose 335 H Calcium 8.9 Urine Color Yellow Urine Clarity Clear Urine pH 5.0 Ur Specific [place] 1.020 Urine Protein 15 H Urine Glucose (UA) 1000 H Urine Ketones 5 H Urine Occult Blood Negative Urine Nitrite Negative Urine Bilirubin Negative Urine Urobilinogen Normal Ur Leukocyte Esterase Negative Urine RBC 0 SEEN Urine WBC 0 SEEN Ur Squamous Epith Cells 0 SEEN Urine Bacteria 0 SEEN Urine Mucus 0 SEEN Radiography Diagnostic Testing: Radiology Impression Abdomen/Pelvis CT 03/25/21 11:55 IMPRESSION: Fatty infiltration of the liver. Status post cholecystectomy. Stable 3 cm x 3 cm fat-containing nodular density in the cecum. Electronically Signed: Zheng Alfaro MD at 13:02 EDT , Service support , Testicular Ultrasound 03/25/21 13:09 IMPRESSION: Moderate degree of bilateral hydroceles. Thickened right epididymis with increased blood flow in keeping with right epididymitis. Electronically Signed: Zheng Alfaro MD at 14:23 EDT , Service support , Discharge Plan Triage Chief Complaint: Male Pain/Injury ED Provider: Castro Trevizo Dx/Rx/DC Orders Instructions: ED Epididymitis Prescriptions: New levofloxacin 500 mg tablet 500 mg PO DAILY Qty: 19 RF: 0 No Action olanzapine 10 mg tablet 10 mg PO QHS RF: 0 Lantus Solostar U-100 Insulin 100 unit/mL (3 mL) insulin pen 30 unit subcut DAILY RF: 0 pantoprazole 40 mg tablet,delayed release (DR/EC) 40 mg PO DAILY Qty: 30 RF: 4 atorvastatin 20 MG tablet 20 mg PO QHS RF: 0 metformin 1,000 MG tablet 1,000 mg PO BID RF: 0 glimepiride 4 MG tablet 4 mg PO DAILY RF: 0 lisinopril 2.5 MG tablet 2.5 mg PO DAILY RF: 0 fenofibrate nanocrystallized 145 MG tablet 145 mg PO DAILY RF: 0 ondansetron HCl [Zofran] 4 mg tablet 4 mg PO Q8H PRN (Reason: nausea and vomiting) Qty: 14 RF: 0 dicyclomine 20 mg tablet 20 mg PO TID PRN (Reason: abdominal pain ) Qty: 20 RF: 0 sucralfate 1 gram tablet 1 g PO 4X/DAY Qty: 56 RF: 0 Primary Care Provider: Bandar Wooten Referrals: Bandar Wooten MD [Primary Care Provider] - Dwaine Rubio MD [STAFF PHYSICIAN] - As soon as possible Disposition Disposition: Home, Self Care
--- NOTE | 2021-03-25 11:55 | CT_ITS ---
STUDY: CT ABDOMEN AND PELVIS WITH CONTRAST REASON FOR EXAM: Male, 50 years old. Abdominal pain. Left testicular pain and back pain. Patient is unable to urinate. RADIATION DOSAGE (If Supplied By Facility): CTDIvol = ( 16.62 ) mGy, DLP = ( 2371.31 ) mGycm TECHNIQUE: Transaxial images were obtained from the dome of the diaphragm to the symphysis pubis without oral contrast. IV 100mL Isovue-300 was administered. Sagittal and coronal images were reconstructed. Individualized dose optimization techniques were used for this CT. COMPARISON: Comparison is made with prior examination dated 01/01/2021. FINDINGS: The visualized lung bases are unremarkable. The visualized portions of the heart are within normal limits. There is decreased attenuation of the liver consistent with steatosis. There are surgical clips in the gallbladder fossa consistent with a prior cholecystectomy. Normal spleen. Normal pancreas. Normal bilateral adrenal glands. Normal right kidney. Normal left kidney. Normal visualized stomach. Normal small intestine. Stable 3 cm x 3 cm rounded fat-containing nodular density in the cecum in the region of the ileocecal valve. This may represent either a lipoma or villous adenoma. The appendix is visualized and appears normal. Normal abdominal aorta. Normal inferior vena cava. Normal retroperitoneum. Normal urinary bladder. Normal abdominal wall. Mild degree of levoscoliosis. CT/Abdomen/Pelvis W IV Cont ONLY IMPRESSION: Fatty infiltration of the liver. Status post cholecystectomy. Stable 3 cm x 3 cm fat-containing nodular density in the cecum. Electronically Signed: Zheng Alfaro MD at 13:02 EDT , Service support ,
[2021-03-25 11:58] LABS: Absolute Lymphocyte Count 2.03 X10^3/uL (0.83-4.51); Absolute Neutrophil Count 6.2 X10^3/uL (2.0-7.7); Basophil# 0.03 X10^3/uL; Basophil% 0.3 % (0-1); Eosinophil# 0.09 X10^3/uL; Hematocrit 47.4 % (40-54); Hemoglobin 16.5 g/dL (13.0-16.5); Lymphocyte # 2.03 X10^3/ul (0.83-4.51); Lymphocyte % 22.2 % (19-41); Mean Corp Hgb Conc 34.8 g/dL (32-36); Mean Corpuscular Hgb 32.1 pg (27.0-32.0); Mean Corpuscular Volume 92.2 fL (80-94); Mean Platelet Vol. 9.7 fl (6.2-12.0); Monocyte# 0.78 X10^3/uL; Monocyte% 8.5 % (0-10); NRBC Flagged by Analyzer 0 % (0-5); Neutrophil # 6.19 X10^3/uL (2.7-7.7); Neutrophil % 67.7 % (47-70); Platelet Count 220 K/mm3 (150-450); RBC Distribution Width CV 11.6 % (11.6-14.6); RBC Distribution Width SD 38.9 fl (35.1-43.9); Red Blood Count 5.14 M/mm3 (4.6-6.2); White Blood Count 9.2 K/mm3 (4.4-11.0)
[2021-03-25 12:11] LABS: Anion Gap 5 (5-15); BUN 14 mg/dL (7-18); BUN/Creat Ratio 14.9 RATIO (10-20); Calcium,Total 8.9 mg/dL (8.5-10.1); Chloride 103 mmol/L (98-107); Creatinine, Serum 0.94 mg/dL (0.70-1.30); EST Glomerular Filtration Rate 91 mL/min (>60); Est Glom Filt Rate - Afr Amer 110 mL/min (>60); Estimated Creatinine Clearance 88.88 ml/min; Glucose 335 mg/dL (74-106); Sodium Level 135 mmol/L (136-145)
[2021-03-25 13:02] LABS: Bacteria 0 SEEN /hpf (None Seen); Mucous, Urine 0 SEEN /hpf (<or=2+); Red Blood Cells-Urine 0 SEEN /hpf (0-5); Squamous Epithelial Cells - UA 0 SEEN /hpf (0-5); White Blood Cells 0 SEEN /hpf (0-5)
[2021-03-25 13:06] LABS: Color, Urine Yellow (Yellow); Glucose, Dipstick 1000 mg/dl (Normal); Ketone-Dipstick 5 mg/dl (Negative); Leukocyte Esterase-Dipstick Negative /ul (Negative); Nitrite-Dipstick Negative (Negative); Occult Blood-Urine Negative /ul (Negative); Protein-Dipstick 15 mg/dl (Negative); Urine Bilirubin Dipstick Negative (Negative); Urine Clarity Clear (Clear); Urine Urobilinogen Normal (Normal)
--- NOTE | 2021-03-25 13:09 | US_ITS ---
STUDY: SCROTUM ULTRASOUND REASON FOR EXAM: Male, 50 years old. 4 month history of testicular pain. TECHNIQUE: Ultrasound evaluation of the scrotum was performed with color Doppler and static de jesus-scale imaging. COMPARISON: None. FINDINGS: RIGHT TESTICLE INTRATESTICULAR: There is a normal size of the right testicle. The right testicle measures 4.7 cm x 2.9 cm x 3 cm. There is a homogenous echotexture. There is normal arterial and normal venous vascularity. There is no demonstrated right testicular mass or cyst. EXTRATESTICULAR: The epididymis is enlarged. The epididymis head measures 1.6 cm x 1.8 cm x 1.1 cm. There is increased (hyperemic) vascularity of the epididymis. There is no demonstrated epididymal cystic structure. There is a moderate size hydrocele. There is no demonstrated varicocele. There is no demonstrated extratesticular mass or cyst. LEFT TESTICLE INTRATESTICULAR: There is a normal size of the left testicle. The left testicle measures 4.6 cm x 3.1 cm x 2.9 cm. There is a homogenous echotexture. There is normal arterial and normal venous vascularity. There is no demonstrated left testicular mass or cyst. EXTRATESTICULAR: The epididymis is normal in size. The epididymis head measures 1.4 cm x 1.5 cm x 0.9 cm. There is normal vascularity of the epididymis. There 2. Small well-defined cystic structures within the epididymis, without internal echoes, consistent with an epididymal cyst. There is a moderate size hydrocele. There is no demonstrated varicocele. There is no demonstrated extratesticular mass or cyst. US/Testicular with Arterial Flow IMPRESSION: Moderate degree of bilateral hydroceles. Thickened right epididymis with increased blood flow in keeping with right epididymitis. Electronically Signed: Zheng Alfaro MD at 14:23 EDT , Service support ,
[2021-03-25] MEDS: levoFLOXacin 500 MG Tablet PO (14:48)
== END 2021-03-25 14:55 | disposition home or self-care (01) ==
PROVIDERS: Emergency Provider Student in an Organized Health Care Education/Training Program; PCP Family Medicine
DX: N45.1 Epididymitis (principal); R10.2 Pelvic and perineal pain; F41.9 Anxiety disorder, unspecified; F31.9 Bipolar disorder, unspecified; E11.9 Type 2 diabetes mellitus without complications; E78.5 Hyperlipidemia, unspecified; I10 Essential (primary) hypertension; E66.9 Obesity, unspecified; Z79.4 Long term (current) use of insulin; Z79.899 Other long term (current) drug therapy
CPT/HCPCS: 51702; 74177; 76870; 80048; 81001; 85025; 93976; 99285; Q9967; A4216

== ENCOUNTER 2022-03-25 13:10 | Emergency (ER) | payer MEDICARE, MEDICAID, SELFPAY ==
[2022-03-25 13:11] VITALS: BP 122/97; PULSE 99; RESP 22; TEMP 36.6; O2SAT 95; BMI 39.6
--- NOTE | 2022-03-25 13:30 | CT_ITS ---
STUDY: CT ABDOMEN AND PELVIS WITH CONTRAST REASON FOR EXAM: Male, 51 years old. Abdominal distention RADIATION DOSAGE (If Supplied By Facility): CTDIvol = ( 15.40 ) mGy, DLP = ( 1357.90 ) mGycm TECHNIQUE: Transaxial images were obtained from the dome of the diaphragm to the symphysis pubis without oral contrast. IV 100mL Isovue-300 was administered. Sagittal and coronal images were reconstructed. Individualized dose optimization techniques were used for this CT. COMPARISON: Comparison is made with prior study dated 03/25/2021. FINDINGS: The visualized lung bases are unremarkable. The visualized portions of the heart are within normal limits. There is decreased attenuation of the liver consistent with steatosis. There are surgical clips in the gallbladder fossa consistent with a prior cholecystectomy. Normal spleen. Normal pancreas. Normal bilateral adrenal glands. Normal right kidney. Normal left kidney. Normal visualized stomach. Normal small intestine. Moderate amount of fecal material is seen in the right hemicolon. Stable 3 cm x 3 cm rounded fat-containing nodule in the cecum in the region of the ileocecal valve. This may represent a villous adenoma. The appendix is visualized and appears normal. Normal abdominal aorta. Normal inferior vena cava. Normal retroperitoneum. Normal urinary bladder. Normal abdominal wall. Levoscoliosis. CT/Abdomen/Pelvis W IV Cont ONLY IMPRESSION: Diffuse fatty infiltration of the liver. Status post cholecystectomy. Stable 3 cm x 3 cm fat-containing nodule in the cecum. Correlation with the colonoscopy is recommended for further evaluation. Electronically Signed: Zheng Alfaro MD at 14:13 EDT ,
--- NOTE | 2022-03-25 13:31 | EDS_ITS ---
HPI HPI - GI History of Present Illness Chief Complaint: Abd Pain Narrative Narrative: 51-year-old male with abdominal pain for 4 years. Patient states that he was seen by his primary care physician last week. Today he states his primary care physician sent him in because his abdomen is more distended. Patient states he is not usually distended. He states he is usually skinny. He denies nausea or vomiting. He states having normal bowel movements and had a bowel movement today. No urinary complaints. No fevers, chills. 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 He states he also has hypertension, diabetes, GERD, hyperlipidemia [facility] Medical History (Updated 03/25/22 @ 13:33 by Joe Pham) Abdominal bloating Anxiety and depression Bipolar 1 disorder Chest pain Developmental disability Diabetes mellitus type 2 in obese Dietary restriction NORA (generalized anxiety disorder) Heartburn High cholesterol Hx of abdominal pain Hyperlipidemia Hypersomnia Hypertension Insomnia Insulin dependent diabetes mellitus Leg swelling Neuropathy Non-smoker Orchitis of left testicle KATE (obstructive sleep apnea) Polyp of colon Rosacea Wears glasses Yeast dermatitis of penis Home Medications atorvastatin 20 mg tablet 20 mg PO QHS 01/26/20 [History Last Taken Unknown] fenofibrate nanocrystallized 145 mg tablet 145 mg PO DAILY 01/26/20 [History Last Taken Unknown] glimepiride 4 mg tablet 4 mg PO DAILY 01/26/20 [History Last Taken 01/28/21 04:30] lisinopril 2.5 mg tablet 2.5 mg PO DAILY 01/26/20 [History Last Taken Unknown] metformin 1,000 mg tablet 1,000 mg PO BID 01/26/20 [History Last Taken 01/28/21 04:30] dicyclomine 20 mg tablet 20 mg PO TID PRN abdominal pain #20 tabs 01/01/21 [Rx Last Taken Unknown] ondansetron HCl 4 mg tablet (Zofran) 4 mg PO Q8H PRN nausea and vomiting #14 tabs 01/01/21 [Rx Last Taken Unknown] insulin glargine 100 unit/mL (3 mL) subcutaneous pen (Lantus Solostar U-100 Insulin) 30 unit subcut DAILY 01/13/21 [History Last Taken Unknown] olanzapine 10 mg tablet 10 mg PO QHS 01/13/21 [History Last Taken Unknown] pantoprazole 40 mg tablet,delayed release 40 mg PO DAILY #30 tabs 01/19/21 [Rx Last Taken Unknown] sucralfate 1 gram tablet 1 g PO 4X/DAY #56 tabs 01/28/21 [Rx Last Taken Unknown] levofloxacin 500 mg tablet 500 mg PO DAILY #19 tabs 03/25/21 [Rx Last Taken Unknown] Januvia 50 mg PO.IVFORM DAILY 03/25/22 [History Last Taken Unknown] buspirone 7.5 mg tablet 2 tab PO BID 03/25/22 [History Last Taken Unknown] dulaglutide 0.75 mg/0.5 mL subcutaneous pen injector (Trulicity) 1 ea subcut X1 03/25/22 [History Last Taken Unknown] escitalopram oxalate 10 mg tablet tab 03/25/22 [History Last Taken Unknown] furosemide 20 mg tablet 1 tab PO DAILY 03/25/22 [History Last Taken Unknown] gabapentin 300 mg capsule 300 mg PO TID 03/25/22 [History Last Taken Unknown] insulin glargine 100 unit/mL (3 mL) subcutaneous pen (Lantus Solostar U-100 Insulin) unit subcut 03/25/22 [History Last Taken Unknown] melatonin 5 mg capsule 5 mg PO QHS 03/25/22 [History Last Taken Unknown] risperidone 1 mg tablet 1 tab PO QHS 03/25/22 [History Last Taken Unknown] sennosides 8.6 mg capsule (senna) 8.6 mg PO BID 03/25/22 [History Last Taken Unknown] trazodone 100 mg tablet tab 03/25/22 [History Last Taken Unknown] Allergy/AdvReac Type Severity Reaction Status Date / Time No Known Allergies Allergy Verified 03/25/22 13:33 Family History Mother Diabetes Father Heart disease Diabetes Surgical History History of cholecystectomy History of hernia repair History of uvulectomy Hx of tonsillectomy Social History Smoking Status: Never smoker ROS ROS ED Constitutional Constitutional ED: Denies chills, fever(s) or sweats Eyes Eyes: Denies blurry vision or change in vision ENT ENT ED: Denies ear pain or sore throat Cardiovascular Cardiovascular: Denies chest pain, palpitations or racing heartbeat Respiratory/Chest Respiratory/Chest: Denies cough, dyspnea or sputum Gastrointestinal Gastrointestinal: Reports abdominal pain; Denies constipation, diarrhea, nausea or vomiting Genitourinary Genitourinary ED: Denies dysuria, hematuria or urinary frequency Musculoskeletal Musculoskeletal: Denies arthralgias, myalgias or neck pain Integumentary Denies abscess, Abrasions or rash Neurologic Neurologic: Denies headache(s), paresthesias or weakness Psychiatric Psychiatric: Denies anxiety, depression, suicidal ideation or suicidal thoughts Endocrine Endocrinology: Denies polydipsia or polyuria EXAM Physical Exam Const Vital Signs: 03/25/22 13:11 Temperature 97.9 F Temperature Source Temporal Pulse Rate 99 Respiratory Rate 22 H Blood Pressure 122/97 H Blood Pressure Mean 105 Pulse Ox 95 Positive well nourished and obese General Appearance ED: Negative for pallor Nutritional Appearance: obese HEENT Reports normocephalic, head/scalp atraumatic and moist mucous membranes Eyes PERRL and EOMs intact bilaterally Neck no lymphadenopathy and supple Chest Wall inspection of chest normal and palpation of chest normal Resp normal respiratory effort and clear to auscultation bilaterally Auscultation: Negative for rales, rhonchi or wheezes Cardio regular rate and regular rhythm GI GI Narrative: No fluid wave. Diffuse generalized tenderness. No peritoneal signs. Abdomen not rigid. Inspection: abdominal distention Auscultation: hyperactive bowel sounds Palpation: soft Narrative: Deferred Back/Spine no CVA tenderness General Back: Negative for CVA tenderness Cervical Spine: Negative for cervical spine tenderness Extremity normal to inspection General Extremety ED: Negative for edema or tenderness General Extremity: Negative for edema Neuro oriented x3 and CN's II-XII intact bilaterally Sensorium / Orientation: alert Motor Exam: strength 5/5 throughout Psych mental status grossly normal Attitude: No agitated Skin no rashes or lesions noted and no wounds General Skin Exam: Negative for jaundice or pallor MDM MDM MDM Narrative Medical decision making narrative: Patient presenting with abdominal pain which he said for 4 years. He is making normal urine and stool. No nausea or vomiting. He states that he is normally skinnier than this and his stomach is distended. No fever or chills. Blood work is obtained and his CBC and CMP are unremarkable. Lipase normal. CT of the abdomen pelvis again shows a 3 x 3 cm fat-containing nodule in the cecum. It does appear that he has had colonoscopy and biopsies of these things and is benign. If that his work-up is ultimately normal I feel he is safe for discharge home. He will follow-up with his PCP to ensure resolution. Impression: 1. Abdominal pain 2. Lipoma of cecum Lab Data Labs: Laboratory Results - last 24 hr 03/25/22 03/25/22 12:56 12:56 WBC 8.8 RBC 5.10 Hgb 15.7 Hct 46.9 MCV 92.0 MCH 30.8 MCHC 33.5 RDW Std Deviation 44.2 H RDW Coeff of Kary 13.0 Plt Count 209 MPV 10.2 Immature Gran % (Auto) 0.500 Neut % (Auto) 56.4 Lymph % (Auto) 29.6 Smith % (Auto) 10.1 H Eos % (Auto) 2.7 Baso % (Auto) 0.7 Absolute Neuts (auto) 5.0 Absolute Lymphs (auto) 2.60 Nucleated RBC % 0 Sodium 137 Potassium 3.9 Chloride 99 Carbon Dioxide 32.0 Anion Gap 6 BUN 9 Creatinine 0.83 Estim Creat Clear Calc 99.55 Est GFR (MDRD) Af Amer 127 Est GFR (MDRD) Non-Af 105 BUN/Creatinine Ratio 10.9 Glucose 225 H Calcium 9.3 Total Bilirubin 0.40 AST 59 H ALT 105 H Alkaline Phosphatase 73 Total Protein 7.3 Albumin 3.5 Globulin 3.8 Albumin/Globulin Ratio 0.9 Lipase 204 Radiography Diagnostic Testing: Clinical Impression(s) from Imaging Studies Abdomen/Pelvis CT 03/25/22 13:30 IMPRESSION: Diffuse fatty infiltration of the liver. Status post cholecystectomy. Stable 3 cm x 3 cm fat-containing nodule in the cecum. Correlation with the colonoscopy is recommended for further evaluation. Electronically Signed: Zheng Alfaro MD at 14:13 EDT , Discharge Plan Triage Chief Complaint: Abd Pain ED Provider: Castro Trevizo Dx/Rx/DC Orders Prescriptions: No Action olanzapine 10 mg tablet 10 mg PO QHS Lantus Solostar U-100 Insulin 100 unit/mL (3 mL) insulin pen 30 unit subcut DAILY pantoprazole 40 mg tablet,delayed release (DR/EC) 40 mg PO DAILY Qty: 30 4RF atorvastatin 20 MG tablet 20 mg PO QHS metformin 1,000 MG tablet 1,000 mg PO BID glimepiride 4 MG tablet 4 mg PO DAILY lisinopril 2.5 MG tablet 2.5 mg PO DAILY fenofibrate nanocrystallized 145 MG tablet 145 mg PO DAILY ondansetron HCl [Zofran] 4 mg tablet 4 mg PO Q8H PRN (Reason: nausea and vomiting) Qty: 14 0RF dicyclomine 20 mg tablet 20 mg PO TID PRN (Reason: abdominal pain ) Qty: 20 0RF sucralfate 1 gram tablet 1 g PO 4X/DAY Qty: 56 0RF Rx Instructions: Take 1 hour before meals and at bedtime levofloxacin 500 mg tablet 500 mg PO DAILY Qty: 19 0RF trazodone 100 mg tablet gabapentin 300 mg capsule 300 mg PO TID Label Comments: take 1 capsule by mouth at bedtime buspirone 7.5 mg tablet 2 tab PO BID furosemide 20 mg tablet 1 tab PO DAILY risperidone 1 mg tablet 1 tab PO QHS escitalopram oxalate 10 mg tablet senna 8.6 mg Capsule 8.6 mg PO BID insulin glargine [Lantus Solostar U-100 Insulin] 100 unit/mL (3 mL) insulin pen SUBCUT melatonin 5 mg Capsule 5 mg PO QHS Trulicity 0.75 mg/0.5 mL pen injector 1 ea SUBCUT X1 Rx Instructions: QWEEKLY FOR 90 DAYS Januvia 50 mg PO.IVFORM DAILY Primary Care Provider: Bandar Wooten Referrals: Bandar Wooten MD [Primary Care Provider] -
[2022-03-25] MEDS: 0.9% Normal Saline 1,000 ML 1000 ML IV (13:38)
[2022-03-25 13:43] LABS: Basophil# 0.06 X10^3/uL; Basophil% 0.7 % (0-1); Eosinophil# 0.24 X10^3/uL; Eosinophils% 2.7 % (0-5); Hematocrit 46.9 % (40-54); Hemoglobin 15.7 g/dL (13.0-16.5); Lymphocyte % 29.6 % (19-41); Mean Corp Hgb Conc 33.5 g/dL (32-36); Mean Corpuscular Hgb 30.8 pg (27.0-32.0); Mean Platelet Vol. 10.2 fl (6.2-12.0); Monocyte# 0.89 X10^3/uL; Monocyte% 10.1 % (0-10); NRBC Flagged by Analyzer 0 % (0-5); Neutrophil # 4.96 X10^3/uL (2.7-7.7); Neutrophil % 56.4 % (47-70); Platelet Count 209 K/mm3 (150-450); RBC Distribution Width SD 44.2 fl (35.1-43.9); White Blood Count 8.8 K/mm3 (4.4-11.0)
[2022-03-25 13:58] LABS: ALB/GLOB Ratio 0.9 RATIO (0.9-2.4); AST(SGOT) 59 U/L (15-37); Alanine Aminotransfer ALT/SGPT 105 U/L (16-61); Albumin, Serum 3.5 g/dL (3.2-5.0); Alkaline Phosphatase 73 U/L (45-117); Anion Gap 6 (5-15); BUN 9 mg/dL (7-18); BUN/Creat Ratio 10.9 RATIO (10-20); Calcium,Total 9.3 mg/dL (8.5-10.1); Chloride 99 mmol/L (98-107); Creatinine, Serum 0.83 mg/dL (0.70-1.30); EST Glomerular Filtration Rate 105 mL/min (>60); Est Glom Filt Rate - Afr Amer 127 mL/min (>60); Estimated Creatinine Clearance 99.55 ml/min; Globulin 3.8 g/dL (2.2-4.2); Glucose 225 mg/dL (74-106); Lipase 204 U/L (73-393); Potassium 3.9 mmol/L (3.5-5.1); Protein, Total 7.3 g/dL (6.4-8.2); Sodium Level 137 mmol/L (136-145)
== END 2022-03-25 14:40 | disposition home or self-care (01) ==
PROVIDERS: Emergency Provider Student in an Organized Health Care Education/Training Program; PCP Family Medicine; Visit Provider Student in an Organized Health Care Education/Training Program
DX: R10.9 Unspecified abdominal pain (principal); E11.40 Type 2 diabetes mellitus with diabetic neuropathy, unspecified; Z79.4 Long term (current) use of insulin; E78.00 Pure hypercholesterolemia, unspecified; R14.0 Abdominal distension (gaseous); E78.5 Hyperlipidemia, unspecified; I10 Essential (primary) hypertension; D17.79 Benign lipomatous neoplasm of other sites; Z90.49 Acquired absence of other specified parts of digestive tract; Z79.899 Other long term (current) drug therapy
CPT/HCPCS: 74177; 80053; 83690; 85025; 96360; 99285; J7030; Q9967

== ENCOUNTER 2022-08-13 11:49 | Emergency (ER) | payer MEDICARE, MEDICAID, SELFPAY ==
[2022-08-13 11:50] VITALS: BP 149/97; PULSE 97; RESP 18; TEMP 36.5; O2SAT 96; BMI 30.3
--- NOTE | 2022-08-13 13:09 | EDS_ITS ---
HPI History of Present Illness Chief Complaint: Other, Pain/Inj Narrative Narrative: 51-year-old male sent in to the ER by his primary care physician, Dr. Banks. He states has had 10 days of abdominal pain. He states the abdominal pain begins in the inguinal region radiates up through his abdomen and into his sternum. He states this has been constant. He states he does have loose stools and they are yellow. He has not been constipated. He is making normal urine. He does not have a cough or shortness of breath. He states that there is pain in his sternal region and that his sternum is tender. He states he had blood work and CT done outpatient which were negative. He continues to have pain. He states his primary care physician gave him something for pain 2 times but this is not helping. Patient has not had a fever. He is eating and drinking normally. [facility] Medical History Abdominal bloating Anxiety and depression Bipolar 1 disorder Chest pain Developmental disability Diabetes mellitus type 2 in obese Dietary restriction NORA (generalized anxiety disorder) Heartburn High cholesterol Hx of abdominal pain Hyperlipidemia Hypersomnia Hypertension Insomnia Insulin dependent diabetes mellitus Leg swelling Neuropathy Non-smoker Orchitis of left testicle KATE (obstructive sleep apnea) Polyp of colon Rosacea Wears glasses Yeast dermatitis of penis Home Medications atorvastatin 20 mg tablet 20 mg PO QHS 01/26/20 [History Last Taken Unknown] fenofibrate nanocrystallized 145 mg tablet 145 mg PO DAILY 01/26/20 [History Last Taken Unknown] glimepiride 4 mg tablet 4 mg PO DAILY 01/26/20 [History Last Taken 01/28/21 04:30] lisinopril 2.5 mg tablet 2.5 mg PO DAILY 01/26/20 [History Last Taken Unknown] metformin 1,000 mg tablet 1,000 mg PO BID 01/26/20 [History Last Taken 01/28/21 04:30] dicyclomine 20 mg tablet 20 mg PO TID PRN abdominal pain #20 tabs 01/01/21 [Rx Last Taken Unknown] ondansetron HCl 4 mg tablet (Zofran) 4 mg PO Q8H PRN nausea and vomiting #14 tabs 01/01/21 [Rx Last Taken Unknown] insulin glargine 100 unit/mL (3 mL) subcutaneous pen (Lantus Solostar U-100 Insulin) 30 unit subcut DAILY 01/13/21 [History Last Taken Unknown] olanzapine 10 mg tablet 10 mg PO QHS 01/13/21 [History Last Taken Unknown] pantoprazole 40 mg tablet,delayed release 40 mg PO DAILY #30 tabs 01/19/21 [Rx Last Taken Unknown] sucralfate 1 gram tablet 1 g PO 4X/DAY #56 tabs 01/28/21 [Rx Last Taken Unknown] levofloxacin 500 mg tablet 500 mg PO DAILY #19 tabs 03/25/21 [Rx Last Taken Unknown] Januvia 50 mg PO.IVFORM DAILY 03/25/22 [History Last Taken Unknown] buspirone 7.5 mg tablet 2 tab PO BID 03/25/22 [History Last Taken Unknown] dulaglutide 0.75 mg/0.5 mL subcutaneous pen injector (Trulicity) 1 ea subcut X1 03/25/22 [History Last Taken Unknown] escitalopram oxalate 10 mg tablet tab 03/25/22 [History Last Taken Unknown] furosemide 20 mg tablet 1 tab PO DAILY 03/25/22 [History Last Taken Unknown] gabapentin 300 mg capsule 300 mg PO TID 03/25/22 [History Last Taken Unknown] insulin glargine 100 unit/mL (3 mL) subcutaneous pen (Lantus Solostar U-100 Insulin) unit subcut 03/25/22 [History Last Taken Unknown] melatonin 5 mg capsule 5 mg PO QHS 03/25/22 [History Last Taken Unknown] risperidone 1 mg tablet 1 tab PO QHS 03/25/22 [History Last Taken Unknown] sennosides 8.6 mg capsule (senna) 8.6 mg PO BID 03/25/22 [History Last Taken Unknown] trazodone 100 mg tablet tab 03/25/22 [History Last Taken Unknown] azithromycin 250 mg tablet 250 mg PO DAILY #4 tabs 08/13/22 [Rx Last Taken Unknown] Allergy/AdvReac Type Severity Reaction Status Date / Time No Known Allergies Allergy Verified 08/13/22 11:54 Family History Mother Diabetes Father Heart disease Diabetes Surgical History History of cholecystectomy History of hernia repair History of uvulectomy Hx of tonsillectomy Social History Smoking Status: Never smoker ROS ROS ED Constitutional Constitutional ED: Denies chills or fever(s) Eyes Eyes: Denies change in vision or diplopia ENT ENT ED: Denies rhinorrhea Cardiovascular Cardiovascular: Reports chest pain Respiratory/Chest Respiratory/Chest: Denies cough or dyspnea Gastrointestinal Gastrointestinal: Reports abdominal pain and diarrhea; Denies nausea or vomiting Genitourinary Genitourinary ED: Denies dysuria or hematuria Musculoskeletal Musculoskeletal: Denies arthralgias or back pain Integumentary Denies abscess Neurologic Neurologic: Denies headache(s) Psychiatric Psychiatric: Denies anxiety, depression, suicidal ideation or suicidal thoughts EXAM Physical Exam Const Vital Signs: 08/13/22 11:50 08/13/22 11:50 08/13/22 13:50 Temperature 97.7 F L Temperature Source Temporal Pulse Rate 97 81 Respiratory Rate 18 16 Respiratory Effort Respiratory Pattern Blood Pressure 149/97 H 114/85 H Blood Pressure Mean 114 94 Pulse Ox 96 98 Oxygen Delivery Method Room Air Room Air 08/13/22 14:09 Temperature Temperature Source Pulse Rate Respiratory Rate Respiratory Effort Normal Non-Labored Respiratory Pattern Normal Blood Pressure Blood Pressure Mean Pulse Ox Oxygen Delivery Method Positive well nourished General Appearance ED: NAD; Negative for pallor HEENT Reports moist mucous membranes Eyes PERRL and EOMs intact bilaterally General Eye ED: Negative for pale conjunctiva or scleral icterus Chest Wall Chest Narrative: Tenderness to palpation to the sternal region. Equal symmetric breath sounds and chest wall rise. Resp normal respiratory effort and clear to auscultation bilaterally Auscultation: Negative for rales, rhonchi or wheezes Cardio regular rate and regular rhythm GI GI Narrative: Diffuse mild tenderness. Back/Spine no CVA tenderness Neuro oriented x3 and CN's II-XII intact bilaterally Sensorium / Orientation: alert Psych mental status grossly normal Skin no rashes or lesions noted General Skin Exam: Negative for jaundice or pallor MDM MDM MDM Narrative Medical decision making narrative: Patient presenting with abdominal pain which radiates up from his inguinal area bilaterally to his abdomen up into his sternum. He does have tenderness to the sternum on examination. Lungs are clear to auscultation. Heart regular rate and rhythm without murmurs. I obtained an EKG which on my interpretation shows a sinus rhythm with a ventricular rate of 84 bpm without sign of ischemic change or dysrhythmia. High-sensitivity troponin is normal at less than 3. This has been ongoing for at least 10 days and it looks like to read the medical history its been longer than this. I do not believe he needs a delta troponin. He is PERC negative. CBC within normal limits. CMP shows an elevated glucose of 258 without anion gap. BUN/creatinine are normal. Slight elevation in AST and ALT but no significant change from previous. Lipase 112. His chest x-ray on my interpretation shows a left lower lobe infiltrate and the radiologist interprets this and agrees. CT of the abdomen pelvis does not show any acute intra- abdominal pathology. I will cover him with Z-Javier for the infiltrate noted on his chest x-ray. He is discharged home in stable condition. He is to follow-up with his primary care provider for his chronic pains. Impression: 1. Chest pain 2. Abdominal pain 3. Diarrhea 4. Community-acquired Lab Data Attestation: I reviewed the patient's lab results. Labs: Laboratory Results - last 24 hr 08/13/22 08/13/22 12:00 12:00 WBC 9.9 RBC 5.43 Hgb 17.4 H Hct 51.0 MCV 93.9 MCH 32.0 MCHC 34.1 RDW Std Deviation 44.0 H RDW Coeff of Kary 12.8 Plt Count 263 MPV 10.4 Immature Gran % (Auto) 0.400 Neut % (Auto) 69.4 Lymph % (Auto) 21.2 Hudson % (Auto) 7.5 Eos % (Auto) 1.1 Baso % (Auto) 0.4 Absolute Neuts (auto) 6.9 Absolute Lymphs (auto) 2.10 Nucleated RBC % 0 Sodium 136 Potassium 3.9 Chloride 102 Carbon Dioxide 28.0 Anion Gap 6 BUN 7 Creatinine 0.76 Estim Creat Clear Calc 120.07 Est GFR (MDRD) Af Amer 139 Est GFR (MDRD) Non-Af 115 BUN/Creatinine Ratio 9.2 L Glucose 258 H Calcium 9.6 Total Bilirubin 0.90 Direct Bilirubin 0.28 AST 39 H ALT 84 H Alkaline Phosphatase 86 Troponin I High Sens < 3 L Total Protein 8.3 H Albumin 4.3 Globulin 4.0 Lipase 112 Radiography Diagnostic Testing: Clinical Impression(s) from Imaging Studies Chest X-Ray 08/13/22 13:35 IMPRESSION: Left basilar infiltrate and blunting of the left costophrenic angle. Electronically Signed: Zheng Alfaro MD at 14:34 EST , Abdomen/Pelvis CT 08/13/22 14:42 IMPRESSION: Mild degree of right basilar linear atelectasis. Fluid-filled left hemicolon. Stable 3.9 cm x 2.8 cm well-defined rounded fat-containing nodule in the cecum. Electronically Signed: Zheng Alfaro MD at 15:19 EST , Discharge Plan Triage Chief Complaint: Other, Pain/Inj ED Provider: Castro Trevizo Dx/Rx/DC Orders Instructions: ED Chest Pain, Noncardiac, ED Pneumonia (Adult), ED Abdominal Pain Unkn Cause Male... Prescriptions: New azithromycin 250 mg tablet 250 mg PO DAILY Qty: 4 0RF No Action olanzapine 10 mg tablet 10 mg PO QHS Lantus Solostar U-100 Insulin 100 unit/mL (3 mL) insulin pen 30 unit subcut DAILY pantoprazole 40 mg tablet,delayed release (DR/EC) 40 mg PO DAILY Qty: 30 4RF atorvastatin 20 MG tablet 20 mg PO QHS metformin 1,000 MG tablet 1,000 mg PO BID glimepiride 4 MG tablet 4 mg PO DAILY lisinopril 2.5 MG tablet 2.5 mg PO DAILY fenofibrate nanocrystallized 145 MG tablet 145 mg PO DAILY ondansetron HCl [Zofran] 4 mg tablet 4 mg PO Q8H PRN (Reason: nausea and vomiting) Qty: 14 0RF dicyclomine 20 mg tablet 20 mg PO TID PRN (Reason: abdominal pain ) Qty: 20 0RF sucralfate 1 gram tablet 1 g PO 4X/DAY Qty: 56 0RF Rx Instructions: Take 1 hour before meals and at bedtime levofloxacin 500 mg tablet 500 mg PO DAILY Qty: 19 0RF trazodone 100 mg tablet gabapentin 300 mg capsule 300 mg PO TID Label Comments: take 1 capsule by mouth at bedtime buspirone 7.5 mg tablet 2 tab PO BID furosemide 20 mg tablet 1 tab PO DAILY risperidone 1 mg tablet 1 tab PO QHS escitalopram oxalate 10 mg tablet senna 8.6 mg Capsule 8.6 mg PO BID insulin glargine [Lantus Solostar U-100 Insulin] 100 unit/mL (3 mL) insulin pen SUBCUT melatonin 5 mg Capsule 5 mg PO QHS Trulicity 0.75 mg/0.5 mL pen injector 1 ea SUBCUT X1 Rx Instructions: QWEEKLY FOR 90 DAYS Januvia 50 mg PO.IVFORM DAILY Primary Care Provider: Estevan Banks Referrals: Estevan Banks DO [Primary Care Provider] - Disposition Disposition: Home, Self Care
--- NOTE | 2022-08-13 13:15 | EKG12_ITS ---
Test Reason : Blood Pressure : / mmHG Vent. Rate : 084 BPM Atrial Rate : 084 BPM P-R Int : 166 ms QRS Dur : 100 ms QT Int : 372 ms P-R-T Axes : 030 -26 002 degrees QTc Int : 439 ms Normal sinus rhythm Normal ECG Confirmed by FABIAN FISHER, SANDEE ([id number]), offline editor DON LORD ([id number]) on 08/17/2022 11:06:12 AM Referred By: ABDULLAHI Confirmed By:JOANNA PERALTA MD
[2022-08-13 13:31] LABS: Absolute Neutrophil Count 6.9 X10^3/uL (2.0-7.7); Basophil# 0.04 X10^3/uL; Basophil% 0.4 % (0-1); Eosinophil# 0.11 X10^3/uL; Eosinophils% 1.1 % (0-5); Hemoglobin 17.4 g/dL (13.0-16.5); Lymphocyte % 21.2 % (19-41); Mean Corp Hgb Conc 34.1 g/dL (32-36); Mean Corpuscular Volume 93.9 fL (80-94); Mean Platelet Vol. 10.4 fl (6.2-12.0); Monocyte# 0.74 X10^3/uL; Monocyte% 7.5 % (0-10); NRBC Flagged by Analyzer 0 % (0-5); Neutrophil # 6.86 X10^3/uL (2.7-7.7); Neutrophil % 69.4 % (47-70); Platelet Count 263 K/mm3 (150-450); RBC Distribution Width CV 12.8 % (11.6-14.6); Red Blood Count 5.43 M/mm3 (4.6-6.2); White Blood Count 9.9 K/mm3 (4.4-11.0)
[2022-08-13] MEDS: 0.9% Normal Saline 1,000 ML 999 ML IV (13:32)
--- NOTE | 2022-08-13 13:35 | RAD_ITS ---
STUDY: X-RAY CHEST REASON FOR EXAM: Male, 51 years old. Chest pain. TECHNIQUE: Single AP portable view of the chest. COMPARISON: None. FINDINGS: EKG electrodes are seen. Increased markings at the lung bases suggestive of a left basilar infiltrate and blunting of the left costo phrenic angle. Normal size heart. Normal mediastinum and alejandra. Normal visualized pulmonary arteries. Normal visualized aortic arch and descending thoracic aorta. Normal visualized thoracic spine. Normal visualized ribs, clavicles, and shoulders. There is no demonstrated abnormality of the visualized soft tissue structures of the upper abdomen. RAD/Chest 1 View (Portable) IMPRESSION: Left basilar infiltrate and blunting of the left costophrenic angle. Electronically Signed: Zheng Alfaro MD at 14:34 EST ,
[2022-08-13 13:50] VITALS: BP 114/85; PULSE 81; RESP 16; O2SAT 98
[2022-08-13 13:54] LABS: AST(SGOT) 39 U/L (15-37); Alanine Aminotransfer ALT/SGPT 84 U/L (16-61); Albumin, Serum 4.3 g/dL (3.2-5.0); Alkaline Phosphatase 86 U/L (45-117); Anion Gap 6 (5-15); BUN 7 mg/dL (7-18); BUN/Creat Ratio 9.2 RATIO (10-20); Bilirubin, Direct 0.28 mg/dL (0.00-0.30); Calcium,Total 9.6 mg/dL (8.5-10.1); Chloride 102 mmol/L (98-107); Creatinine, Serum 0.76 mg/dL (0.70-1.30); EST Glomerular Filtration Rate 115 mL/min (>60); Est Glom Filt Rate - Afr Amer 139 mL/min (>60); Estimated Creatinine Clearance 120.07 ml/min; Glucose 258 mg/dL (74-106); Lipase 112 U/L (73-393); Potassium 3.9 mmol/L (3.5-5.1); Protein, Total 8.3 g/dL (6.4-8.2); Sodium Level 136 mmol/L (136-145); Troponin-I HS < 3 pg/mL (3.0-78.0)
--- NOTE | 2022-08-13 14:42 | CT_ITS ---
STUDY: CT ABDOMEN AND PELVIS WITH CONTRAST REASON FOR EXAM: Male, 51 years old. 3 week history of a swollen scrotum. Abdominal pain. RADIATION DOSAGE (If Supplied By Facility): CTDIvol = ( 14.36 ) mGy, DLP = ( 1397.40 ) mGycm TECHNIQUE: Transaxial images were obtained from the dome of the diaphragm to the symphysis pubis without oral contrast. IV 100mL Isovue-300 was administered. Sagittal and coronal images were reconstructed. Individualized dose optimization techniques were used for this CT. COMPARISON: Comparison is made with prior examination dated 03/25/2022. FINDINGS: Minimal degree of increased linear markings at the lung bases suggestive of atelectasis. The visualized portions of the heart are within normal limits. There is decreased attenuation of the liver consistent with steatosis. There are surgical clips in the gallbladder fossa consistent with a prior cholecystectomy. Normal spleen. Normal pancreas. Normal bilateral adrenal glands. Normal right kidney. Normal left kidney. Normal visualized stomach. Normal small intestine. Fluid is seen in the left hemicolon. Once again, there is a 3.97 x 2.8 cm well-defined rounded fat-containing nodule in the cecum. This may represent a villous adenoma.. Clinical correlation is recommended. The appendix is visualized and appears normal. Normal abdominal aorta. Normal inferior vena cava. Normal retroperitoneum. Normal urinary bladder. Findings suggestive of bilateral hydroceles. Normal abdominal wall. Levoscoliosis. CT/Abdomen/Pelvis W IV Cont ONLY IMPRESSION: Mild degree of right basilar linear atelectasis. Fluid-filled left hemicolon. Stable 3.9 cm x 2.8 cm well-defined rounded fat-containing nodule in the cecum. Electronically Signed: Zheng Alfaro MD at 15:19 EST ,
[2022-08-13] MEDS: Azithromycin 250 MG Tablet 500 MG PO (16:03)
[2022-08-13 16:18] VITALS: RESP 18
== END 2022-08-13 16:19 | disposition home or self-care (01) ==
PROVIDERS: Emergency Provider Student in an Organized Health Care Education/Training Program; Visit Provider Student in an Organized Health Care Education/Training Program
DX: R07.9 Chest pain, unspecified (principal); E11.65 Type 2 diabetes mellitus with hyperglycemia; E11.40 Type 2 diabetes mellitus with diabetic neuropathy, unspecified; R10.9 Unspecified abdominal pain; R19.7 Diarrhea, unspecified; I10 Essential (primary) hypertension; G89.29 Other chronic pain; E78.5 Hyperlipidemia, unspecified
CPT/HCPCS: 71045; 74177; 80048; 80076; 83690; 84484; 85025; 93005; 96360; 99285; J7030; Q9967; A4216

== ENCOUNTER 2023-07-25 19:10 | Emergency (ER) | payer MEDICARE, MEDICAID, SELFPAY ==
[2023-07-25 19:11] VITALS: BP 157/90; PULSE 110; RESP 18; TEMP 36.7; O2SAT 98
[2023-07-25 19:37] LABS: Bacteria 0 SEEN /hpf (None Seen); Mucous, Urine 0 SEEN /hpf (<or=2+); Red Blood Cells-Urine 0 SEEN /hpf (0-5); Squamous Epithelial Cells - UA 0 SEEN /hpf (0-5); White Blood Cells 0 SEEN /hpf (0-5)
[2023-07-25 19:48] LABS: Color, Urine Yellow (Yellow); Glucose, Dipstick Normal (Normal); Ketone-Dipstick Negative (Negative); Leukocyte Esterase-Dipstick Negative /ul (Negative); Nitrite-Dipstick Negative (Negative); Occult Blood-Urine Negative /ul (Negative); Protein-Dipstick Negative (Negative); Specific Gravity, Urine 1.025 (1.002-1.030); Urine Bilirubin Dipstick Negative (Negative); Urine Clarity Clear (Clear); Urine Urobilinogen Normal (Normal)
[2023-07-25 19:55] LABS: Absolute Lymphocyte Count 3.21 X10^3/uL (0.83-4.51); Absolute Neutrophil Count 6.5 X10^3/uL (2.0-7.7); Basophil# 0.06 X10^3/uL; Basophil% 0.6 % (0-1); Eosinophil# 0.23 X10^3/uL; Eosinophils% 2.1 % (0-5); Hemoglobin 17.2 g/dL (13.0-16.5); Lymphocyte # 3.21 X10^3/ul (0.83-4.51); Lymphocyte % 29.5 % (19-41); Mean Corp Hgb Conc 34.4 g/dL (32-36); Mean Platelet Vol. 9.2 fl (6.2-12.0); Monocyte# 0.88 X10^3/uL; Monocyte% 8.1 % (0-10); NRBC Flagged by Analyzer 0 % (0-5); Neutrophil # 6.46 X10^3/uL (2.7-7.7); Neutrophil % 59.2 % (47-70); Platelet Count 288 K/mm3 (150-450); RBC Distribution Width CV 12.1 % (11.6-14.6); Red Blood Count 5.21 M/mm3 (4.6-6.2); White Blood Count 10.9 K/mm3 (4.4-11.0)
[2023-07-25 20:19] LABS: AST(SGOT) 44 U/L (15-37); Alanine Aminotransfer ALT/SGPT 75 U/L (16-61); Albumin, Serum 4.2 g/dL (3.2-5.0); Alkaline Phosphatase 79 U/L (45-117); Anion Gap 6 (5-15); BUN 11 mg/dL (7-18); BUN/Creat Ratio 13.5 RATIO (10-20); Calcium,Total 9.6 mg/dL (8.5-10.1); Chloride 102 mmol/L (98-107); Creatinine, Serum 0.81 mg/dL (0.70-1.30); EST Glomerular Filtration Rate 106 mL/min (>60); Est Glom Filt Rate - Afr Amer 129 mL/min (>60); Estimated Creatinine Clearance 97.36 ml/min; Glucose 148 mg/dL (74-106); Potassium 3.7 mmol/L (3.5-5.1); Protein, Total 8.2 g/dL (6.4-8.2); Sodium Level 138 mmol/L (136-145)
--- NOTE | 2023-07-25 20:31 | EX.ED.DYSGE1 ---
HPI History of Present Illness Chief Complaint: Abd Pain Informant: patient and family Narrative Narrative: 52-year-old male presenting to the emergency room with abdominal pain. History is very difficult to obtain from the patient as he has significant exacerbations, inconsistencies, and hysterical thinking. From what I am gathering from him and from family on Tuesday began to have vomiting and he had diarrhea. Now he states that his hands are swollen his toes are curling his abdomen is distended he has bumps sticking out of his ribs his scrotum is swollen his back hurts and he is in pain. No fevers. He keeps saying over and over that he is in pain and that something he thinks is very wrong. He tells me that his abdomen is distended and pushes it out and then relaxes and it goes back. He sucks it in to allow a protrusion from his right rib to be seen and tells me that it is tender. Is also present on the left side I think that this could be his costochondral chest wall. He states that his right hemiscrotum is swollen at night but is fine during the day and sometimes there is a red streak extending from his anus to the base of his scrotum. [facility] Medical History Abdominal bloating Anxiety and depression Bipolar 1 disorder Chest pain Developmental disability Diabetes mellitus type 2 in obese Dietary restriction NORA (generalized anxiety disorder) Heartburn High cholesterol Hx of abdominal pain Hyperlipidemia Hypersomnia Hypertension Insomnia Insulin dependent diabetes mellitus Leg swelling Lesion of cecum Neuropathy Non-smoker Orchitis of left testicle KATE (obstructive sleep apnea) Polyp of colon Rosacea Wears glasses Yeast dermatitis of penis Home Medications atorvastatin 20 mg tablet 20 mg PO QHS 01/26/20 [History Last Taken Unknown] fenofibrate nanocrystallized 145 mg tablet 145 mg PO DAILY 01/26/20 [History Last Taken Unknown] glimepiride 4 mg tablet 4 mg PO DAILY 01/26/20 [History Last Taken 01/28/21 04:30] lisinopril 2.5 mg tablet 2.5 mg PO DAILY 01/26/20 [History Last Taken Unknown] metformin 1,000 mg tablet 1,000 mg PO BID 01/26/20 [History Last Taken 01/28/21 04:30] dicyclomine 20 mg tablet 20 mg PO TID PRN abdominal pain #20 tabs 01/01/21 [Rx Last Taken Unknown] ondansetron HCl 4 mg tablet (Zofran) 4 mg PO Q8H PRN nausea and vomiting #14 tabs 01/01/21 [Rx Last Taken Unknown] insulin glargine 100 unit/mL (3 mL) subcutaneous pen (Lantus Solostar U-100 Insulin) 30 unit subcut DAILY 01/13/21 [History Last Taken Unknown] olanzapine 10 mg tablet 10 mg PO QHS 01/13/21 [History Last Taken Unknown] pantoprazole 40 mg tablet,delayed release 40 mg PO DAILY #30 tabs 01/19/21 [Rx Last Taken Unknown] sucralfate 1 gram tablet 1 g PO 4X/DAY #56 tabs 01/28/21 [Rx Last Taken Unknown] levofloxacin 500 mg tablet 500 mg PO DAILY #19 tabs 03/25/21 [Rx Last Taken Unknown] Januvia 50 mg PO.IVFORM DAILY 03/25/22 [History Last Taken Unknown] buspirone 7.5 mg tablet 2 tab PO BID 03/25/22 [History Last Taken Unknown] dulaglutide 0.75 mg/0.5 mL subcutaneous pen injector (Trulicity) 1 ea subcut X1 03/25/22 [History Last Taken Unknown] escitalopram oxalate 10 mg tablet tab 03/25/22 [History Last Taken Unknown] furosemide 20 mg tablet 1 tab PO DAILY 03/25/22 [History Last Taken Unknown] gabapentin 300 mg capsule 300 mg PO TID 03/25/22 [History Last Taken Unknown] insulin glargine 100 unit/mL (3 mL) subcutaneous pen (Lantus Solostar U-100 Insulin) unit subcut 03/25/22 [History Last Taken Unknown] melatonin 5 mg capsule 5 mg PO QHS 03/25/22 [History Last Taken Unknown] risperidone 1 mg tablet 1 tab PO QHS 03/25/22 [History Last Taken Unknown] sennosides 8.6 mg capsule (senna) 8.6 mg PO BID 03/25/22 [History Last Taken Unknown] trazodone 100 mg tablet tab 03/25/22 [History Last Taken Unknown] azithromycin 250 mg tablet 250 mg PO DAILY #4 tabs 08/13/22 [Rx Last Taken Unknown] Allergy/AdvReac Type Severity Reaction Status Date / Time No Known Allergies Allergy Verified 07/25/23 19:14 Family History Mother Diabetes Father Heart disease Diabetes Surgical History History of cholecystectomy History of hernia repair History of uvulectomy Hx of tonsillectomy Social History Smoking Status: Never smoker ROS ROS ED Constitutional Constitutional ED: Denies chills, fever(s) or weight loss Eyes Eyes: Denies change in vision or diplopia ENT ENT ED: Reports sore throat; Denies ear pain or rhinorrhea Cardiovascular Cardiovascular: Denies chest pain, orthopnea, palpitations or racing heartbeat Respiratory/Chest Respiratory/Chest: Reports cough; Denies dyspnea or orthopnea Gastrointestinal Gastrointestinal: Reports abdominal pain, diarrhea, nausea and vomiting Genitourinary Genitourinary ED: Denies dysuria, hematuria or urinary frequency Musculoskeletal Musculoskeletal: Reports back pain; Denies arthralgias or myalgias Integumentary Denies abscess or rash Neurologic Neurologic: Denies headache(s) or weakness Psychiatric Psychiatric: Denies anxiety, depression, suicidal ideation or suicidal thoughts Endocrine Endocrinology: Denies polydipsia, polyphagia or polyuria Allergic/Immunologic Allergic/Immunologic ED: Denies mouth swelling, tongue swelling or urticaria EXAM Physical Exam Const Vital Signs: 07/25/23 19:11 Temperature 98.0 F Temperature Source Temporal Pulse Rate 110 H Respiratory Rate 18 Blood Pressure 157/90 H Blood Pressure Mean 112 Pulse Ox 98 Oxygen Delivery Method Room Air Positive well nourished and well developed General Appearance ED: well developed HEENT Reports normocephalic, head/scalp atraumatic and moist mucous membranes Eyes PERRL and EOMs intact bilaterally Neck no lymphadenopathy, supple and no JVD Chest Wall Chest Narrative: Bilateral lower anterior chest wall tenderness Resp normal respiratory effort and clear to auscultation bilaterally Cardio regular rate, regular rhythm and no murmurs Rate: tachycardic GI GI Narrative: The abdomen is soft and nondistended. There are normal bowel sounds. He reports diffuse tenderness. He continues to stick his stomach out and tell me that it swollen only to relax and have it going back to what I assume would be his normal abdomen Auscultation: normoactive bowel sounds Palpation: soft Back/Spine no CVA tenderness and normal ROM Extremity normal to inspection Extremity Narrative: He shows me that his toes are curling but then he relaxes them and they straighten out again. General Extremety ED: Negative for edema General Extremity: Negative for edema Neuro oriented x3 and CN's II-XII intact bilaterally Sensorium / Orientation: alert Motor Exam: strength 5/5 throughout Psych mental status grossly normal Mood & Affect: Negative for depressed or tearful Skin no rashes or lesions noted and no wounds MDM MDM MDM Narrative Medical decision making narrative: White count 10.9 with a hemoglobin of 17.2. BMP showed a glucose of 148. Liver enzymes are AST of 44 ALT of 75. Urinalysis is normal. My interpuration of the CXR is no acute process. CT shows nothing acute. There is fluid in the stomach and he states he hasnt had anything to eat or drink for >12 hours. He is a diabetic and ? gastroparesis. He recieved toradol and later reglan. No vomiting in ED. no diarrhea. Patient is constantly poking his abdomen which demonstrates lack of peritoneal signs. He is tachycardic but I wonder how much is anxiety/constant movement by the patient. His complaint of toes curling I am not seeing at this moment. He complains that his hands are very swollen and I am not really seeing that. He states his abdomen is very protuberant but I do not appreciate it is distended and when I go to examine that he physically sticks it out at me. At this point I do not really have anything concrete I can admit him on. He is verbalizing complaints that I cannot find objective findings for He has follow-up with his doctor tomorrow. Lab Data Attestation: I reviewed the patient's lab results. Labs: Laboratory Results - last 24 hr 07/25/23 07/25/23 19:20 19:39 WBC 10.9 RBC 5.21 Hgb 17.2 H Hct 50.0 MCV 96.0 H MCH 33.0 H MCHC 34.4 RDW Std Deviation 43.0 RDW Coeff of Kary 12.1 Plt Count 288 MPV 9.2 Immature Gran % (Auto) 0.500 Neut % (Auto) 59.2 Lymph % (Auto) 29.5 [place] % (Auto) 8.1 Eos % (Auto) 2.1 Baso % (Auto) 0.6 Absolute Neuts (auto) 6.5 Absolute Lymphs (auto) 3.21 Nucleated RBC % 0 Sodium 138 Potassium 3.7 Chloride 102 Carbon Dioxide 30.0 Anion Gap 6 BUN 11 Creatinine 0.81 Estim Creat Clear Calc 97.36 Est GFR (MDRD) Af Amer 129 Est GFR (MDRD) Non-Af 106 BUN/Creatinine Ratio 13.5 Glucose 148 H Calcium 9.6 Total Bilirubin 0.50 AST 44 H ALT 75 H Alkaline Phosphatase 79 Total Protein 8.2 Albumin 4.2 Globulin 4.0 Albumin/Globulin Ratio 1.0 Lipase 21 Urine Color Yellow Urine Clarity Clear Urine pH 5.0 Ur Specific [place] 1.025 Urine Protein Negative Urine Glucose (UA) Normal Urine Ketones Negative Urine Occult Blood Negative Urine Nitrite Negative Urine Bilirubin Negative Urine Urobilinogen Normal Ur Leukocyte Esterase Negative Urine RBC 0 SEEN Urine WBC 0 SEEN Ur Squamous Epith Cells 0 SEEN Urine Bacteria 0 SEEN Urine Mucus 0 SEEN Radiography Diagnostic Testing: Clinical Impression(s) from Imaging Studies Abdomen/Pelvis CT 07/25/23 20:44 IMPRESSION: Mild nonspecific ileus with diffuse fecal retention in the colon. No evidence for small bowel obstruction or acute appendicitis Other findings as above Electronically Signed: George Chatman MD at 21:04 EST , Chest X-Ray 07/25/23 22:55 IMPRESSION: Suggestion of minimal basilar atelectasis with correlate with the comparison CT. Otherwise, no acute findings. Electronically Signed: Fede Carlton DO at 23:08 EST , EKG Initial EKG: Attestation: I personally reviewed and interpreted this EKG as follows: Comments: Sinus tachycardia with a ventricular rate of 111 bpm. No concerning features of ACS noted. Discharge Plan Triage Chief Complaint: Abd Pain ED Provider: Jesús Meza Dx/Rx/DC Orders Clinical Impression: Sinus tachycardia, Diarrhea, Abdominal pain Prescriptions: No Action olanzapine 10 mg tablet 10 mg PO QHS Lantus Solostar U-100 Insulin 100 unit/mL (3 mL) insulin pen 30 unit subcut DAILY pantoprazole 40 mg tablet,delayed release (DR/EC) 40 mg PO DAILY Qty: 30 4RF atorvastatin 20 MG tablet 20 mg PO QHS metformin 1,000 MG tablet 1,000 mg PO BID glimepiride 4 MG tablet 4 mg PO DAILY lisinopril 2.5 MG tablet 2.5 mg PO DAILY fenofibrate nanocrystallized 145 MG tablet 145 mg PO DAILY ondansetron HCl [Zofran] 4 mg tablet 4 mg PO Q8H PRN (Reason: nausea and vomiting) Qty: 14 0RF dicyclomine 20 mg tablet 20 mg PO TID PRN (Reason: abdominal pain ) Qty: 20 0RF sucralfate 1 gram tablet 1 g PO 4X/DAY Qty: 56 0RF Rx Instructions: Take 1 hour before meals and at bedtime levofloxacin 500 mg tablet 500 mg PO DAILY Qty: 19 0RF trazodone 100 mg tablet gabapentin 300 mg capsule 300 mg PO TID Patient Comments: take 1 capsule by mouth at bedtime buspirone 7.5 mg tablet 2 tab PO BID furosemide 20 mg tablet 1 tab PO DAILY risperidone 1 mg tablet 1 tab PO QHS escitalopram oxalate 10 mg tablet senna 8.6 mg Capsule 8.6 mg PO BID insulin glargine [Lantus Solostar U-100 Insulin] 100 unit/mL (3 mL) insulin pen SUBCUT melatonin 5 mg Capsule 5 mg PO QHS Trulicity 0.75 mg/0.5 mL pen injector 1 ea SUBCUT X1 Rx Instructions: QWEEKLY FOR 90 DAYS Januvia 50 mg PO.IVFORM DAILY azithromycin 250 mg tablet 250 mg PO DAILY Qty: 4 0RF Primary Care Provider: Estevan Banks Referrals: Estevan Banks DO [Primary Care Provider] - [facility] appointment Disposition Disposition: Home, Self Care
[2023-07-25 20:44] LABS: Lipase 21 U/L (13-75)
--- NOTE | 2023-07-25 20:44 | CT_ITS ---
STUDY: CT ABDOMEN AND PELVIS WITH CONTRAST REASON FOR EXAM: Male, 52 years old. abdominal pain RADIATION DOSAGE (If Supplied By Facility): CTDIvol = ( 12.87 ) mGy, DLP = ( 1357.47 ) mGycm TECHNIQUE: Transaxial images were obtained from the dome of the diaphragm to the symphysis pubis without oral contrast. IV 100mL Isovue-370 was administered. Sagittal and coronal images were reconstructed. Individualized dose optimization techniques were used for this CT. COMPARISON: August 13, 2022 FINDINGS: Mild nonspecific bibasilar interstitial thickening. There is mild prominence of the cardiac silhouette.. No coronary artery calcification is noted Liver is prominent and fatty infiltrated without mass or bile duct indication. Gallbladder has been removed surgically. Spleen is upper normal in size. Normal pancreas. Normal bilateral adrenal glands. Normal right kidney. Normal left kidney. Normal visualized stomach. Minor ileus with diffuse fecal retention in the colon There is a large nonobstructing lipoma in the proximal ascending colon. The appendix is visualized and appears normal. Normal abdominal aorta. Normal inferior vena cava. Normal retroperitoneum. Normal urinary bladder. Mildly nonspecifically enlarged prostate Normal abdominal wall. Lumbar spine demonstrates mild spondylosis CT/Abdomen/Pelvis W IV Cont ONLY IMPRESSION: Mild nonspecific ileus with diffuse fecal retention in the colon. No evidence for small bowel obstruction or acute appendicitis Other findings as above Electronically Signed: George Chatman MD at 21:04 EST ,
[2023-07-25] MEDS: Ketorolac 30 MG/ML Syringe IV (20:51)
--- NOTE | 2023-07-25 22:55 | RAD_ITS ---
EXAM: XR CHEST, 1 VIEW CLINICAL INDICATION: chest pain TECHNIQUE: Frontal view of the chest. COMPARISON: 08/13/2022; CT abdomen and pelvis, 07/25/2023 FINDINGS: LUNGS AND PLEURAL SPACES: Suggestion of minimal basilar atelectasis with correlate with the comparison CT. No pneumothorax. No effusion. HEART: No significant abnormality. Cardiac silhouette not enlarged. MEDIASTINUM: Central airways and mediastinal contour are unremarkable. BONES/JOINTS: No significant abnormality. No acute fracture. SOFT TISSUES: No significant abnormality. RAD/Chest 1 View (Portable) IMPRESSION: Suggestion of minimal basilar atelectasis with correlate with the comparison CT. Otherwise, no acute findings. Electronically Signed: Fede Carlton DO at 23:08 EST ,
[2023-07-25] MEDS: Metoclopramide 10 MG Tablet PO (23:18)
== END 2023-07-25 23:20 | disposition home or self-care (01) ==
PROVIDERS: Emergency Provider Emergency Medicine; Visit Provider Emergency Medicine
DX: R10.9 Unspecified abdominal pain (principal); E11.43 Type 2 diabetes mellitus with diabetic autonomic (poly)neuropathy; K56.7 Ileus, unspecified; R00.0 Tachycardia, unspecified; E78.00 Pure hypercholesterolemia, unspecified; R19.7 Diarrhea, unspecified; I10 Essential (primary) hypertension; K31.84 Gastroparesis
CPT/HCPCS: 71045; 74177; 80053; 81001; 83690; 85025; 93005; 96374; 99284; Q9967; A4216

== ENCOUNTER 2023-08-15 12:38 | Emergency (ER) | payer MEDICARE, MEDICAID, SELFPAY ==
[2023-08-15 12:39] VITALS: BP 150/122; PULSE 110; RESP 16; TEMP 35.8; O2SAT 99; BMI 30.2
--- NOTE | 2023-08-15 12:56 | EDS_ITS ---
HPI <LUZMA Cooper - Last Filed: 08/15/23 15:42> History of Present Illness Chief Complaint: Male Pain/Injury Narrative Narrative: 52-year-old male presents with abdominal and scrotal pain. Patient is somewhat manic in relaying his history. He states he has had months of generalized abdominal pain and scrotal pain. He can eat and drink normally and is not nauseous or vomiting but at night he feels a bad taste in his mouth, spits up a little bit, and has lower chest/upper abdominal discomfort. He states when he pushes on his abdomen he feels crackling. He states his scrotum hurts and he has to push on it to be able to urinate. He has the same symptoms every day for months and they are unchanged. He was seen here a month ago and had negative CT scan. He states he is supposed to see a GI specialist in [place] but cannot wait for that appointment. He is having daily bowel movements and denies black or bloody stools. No dysuria, hematuria, or frequency. He reports bilateral inguinal hernia repair years ago and cholecystectomy. [facility] <LUZMA Cooper - Last Filed: 08/15/23 15:42> [facility] Medical History Abdominal bloating Anxiety and depression Bipolar 1 disorder Chest pain Developmental disability Diabetes mellitus type 2 in obese Dietary restriction NORA (generalized anxiety disorder) Heartburn High cholesterol Hx of abdominal pain Hyperlipidemia Hypersomnia Hypertension Insomnia Insulin dependent diabetes mellitus Leg swelling Lesion of cecum Neuropathy Non-smoker Orchitis of left testicle KATE (obstructive sleep apnea) Polyp of colon Rosacea Wears glasses Yeast dermatitis of penis Home Medications atorvastatin 20 mg tablet 20 mg PO QHS 01/26/20 [History Last Taken Unknown] fenofibrate nanocrystallized 145 mg tablet 145 mg PO DAILY 01/26/20 [History Last Taken Unknown] glimepiride 4 mg tablet 4 mg PO DAILY 01/26/20 [History Last Taken 01/28/21 04:30] lisinopril 2.5 mg tablet 2.5 mg PO DAILY 01/26/20 [History Last Taken Unknown] metformin 1,000 mg tablet 1,000 mg PO BID 01/26/20 [History Last Taken 01/28/21 04:30] dicyclomine 20 mg tablet 20 mg PO TID PRN abdominal pain #20 tabs 01/01/21 [Rx Last Taken Unknown] ondansetron HCl 4 mg tablet (Zofran) 4 mg PO Q8H PRN nausea and vomiting #14 tabs 01/01/21 [Rx Last Taken Unknown] insulin glargine 100 unit/mL (3 mL) subcutaneous pen (Lantus Solostar U-100 Insulin) 30 unit subcut DAILY 01/13/21 [History Last Taken Unknown] olanzapine 10 mg tablet 10 mg PO QHS 01/13/21 [History Last Taken Unknown] pantoprazole 40 mg tablet,delayed release 40 mg PO DAILY #30 tabs 01/19/21 [Rx Last Taken Unknown] sucralfate 1 gram tablet 1 g PO 4X/DAY #56 tabs 01/28/21 [Rx Last Taken Unknown] levofloxacin 500 mg tablet 500 mg PO DAILY #19 tabs 03/25/21 [Rx Last Taken Unknown] Januvia 50 mg PO.IVFORM DAILY 03/25/22 [History Last Taken Unknown] buspirone 7.5 mg tablet 2 tab PO BID 03/25/22 [History Last Taken Unknown] dulaglutide 0.75 mg/0.5 mL subcutaneous pen injector (Trulicity) 1 ea subcut X1 03/25/22 [History Last Taken Unknown] escitalopram oxalate 10 mg tablet tab 03/25/22 [History Last Taken Unknown] furosemide 20 mg tablet 1 tab PO DAILY 03/25/22 [History Last Taken Unknown] gabapentin 300 mg capsule 300 mg PO TID 03/25/22 [History Last Taken Unknown] insulin glargine 100 unit/mL (3 mL) subcutaneous pen (Lantus Solostar U-100 Insulin) unit subcut 03/25/22 [History Last Taken Unknown] melatonin 5 mg capsule 5 mg PO QHS 03/25/22 [History Last Taken Unknown] risperidone 1 mg tablet 1 tab PO QHS 03/25/22 [History Last Taken Unknown] sennosides 8.6 mg capsule (senna) 8.6 mg PO BID 03/25/22 [History Last Taken Unknown] trazodone 100 mg tablet tab 03/25/22 [History Last Taken Unknown] azithromycin 250 mg tablet 250 mg PO DAILY #4 tabs 08/13/22 [Rx Last Taken Unknown] Allergy/AdvReac Type Severity Reaction Status Date / Time No Known Allergies Allergy Verified 08/15/23 12:38 Family History Mother Diabetes Father Heart disease Diabetes Surgical History History of cholecystectomy History of hernia repair History of uvulectomy Hx of tonsillectomy Social History Smoking Status: Never smoker ROS <LUZMA Cooper - Last Filed: 08/15/23 15:42> ROS ED ROS Narrative Constitutional: Negative for fever, chills, malaise. GI: Positive for abdominal pain. negative for nausea, vomiting, diarrhea, constipation, melena, hematochezia. : Negative for dysuria, hematuria or frequency. EXAM <LUZMA Cooper - Last Filed: 08/15/23 15:42> Physical Exam Narrative Exam Narrative: CONST: Patient sitting in no acute distress. NECK: Normal inspection. RESP: No respiratory distress, CTAB. CVS: Regular rate and rhythm, no murmur, no gallop. ABD: Patient voluntary guarding when I just sent my hand on his abdomen. With distraction his abdomen is soft, nondistended. SKIN: Color normal, no rash, warm, dry, intact. EXTREMITIES: Normal appearance, no pedal edema. NEURO: Oriented x4. PSYCH: Normal affect. Const Vital Signs: 08/15/23 12:39 08/15/23 13:28 Temperature 96.5 F L Temperature Source Temporal Pulse Rate 110 H Respiratory Rate 16 Respiratory Effort Normal Respiratory Pattern Normal Blood Pressure 150/122 H Blood Pressure Mean 131 Pulse Ox 99 Oxygen Delivery Method Room Air <Dr. Afshin Jackson MD - Last Filed: 08/16/23 07:20> Physical Exam Const Vital Signs: 08/15/23 12:39 08/15/23 13:28 Temperature 96.5 F L Temperature Source Temporal Pulse Rate 110 H Respiratory Rate 16 Respiratory Effort Normal Respiratory Pattern Normal Blood Pressure 150/122 H Blood Pressure Mean 131 Pulse Ox 99 Oxygen Delivery Method Room Air MDM <LUZMA Cooper - Last Filed: 08/15/23 15:42> MDM MDM Narrative Medical decision making narrative: History gathered from: Patient and friend at bedside I have personally performed a face to face assessment of the patient and have reviewed the MICHAEL Note. I performed a substantive portion of the visit including all aspects of the following. My toribio findings include: History is remarkable for worsening generalized abdominal pain, scrotal pain and swelling. States symptoms are worse at night. He states his abdomen rolls when he turns at night. He denies vomiting diarrhea. He denies urologic symptoms other than the swollen scrotum and testicles. Patient denies fever, chills night sweats. Patient denies nausea. Patient denies intolerance to any food. Exam is unremarkable. Patient's blood pressure is slightly elevated. HEENT exam is unremarkable. Neck is supple. There is no carotid bruits. Lungs are clear auscultation. Heart is regular. Rate is normal. There is no murmur, gallop or rub. Abdomen soft flabby and pain out of proportion to light tactile stimulus. Bowel sounds are present normal. There is no palp pulsatile mass or abdominal bruit. There is no months of inguinal hernia or inguinal lymphadenopathy. No penile lesions or discharge. Testes descended bilaterally with normal lie. No swelling of the right or left testicle. There is no evidence of inguinal hernia. There is no evidence of scrotal cellulitis. There is no swelling or erythema in the perineal region. Furthermore, patient denied rectal pain. Medical Decision Making patient is insistent there is something wrong. He had a recent scan. At this point we will obtain blood work. Also UA was obtained. My suspicion patient has underlying psychiatric disorder and abdominal pain of unknown etiology. Other additions or changes: [None] Test considered: I do not think he needs a scrotal ultrasound as he has had months of scrotal pain, has no swelling or tenderness on exam, no signs of cellu litis or Sherry's gangrene are present. Lab Data Labs: Laboratory Results - last 24 hr 08/15/23 08/15/23 13:22 13:45 WBC 9.7 RBC 4.87 Hgb 16.4 Hct 45.9 MCV 94.3 H MCH 33.7 H MCHC 35.7 RDW Std Deviation 41.0 RDW Coeff of Kary 11.8 Plt Count 252 MPV 9.0 Immature Gran % (Auto) 0.400 Neut % (Auto) 59.7 Lymph % (Auto) 28.8 [place] % (Auto) 8.2 Eos % (Auto) 2.4 Baso % (Auto) 0.5 Absolute Neuts (auto) 5.8 Absolute Lymphs (auto) 2.79 Nucleated RBC % 0 Sodium 135 L Potassium 4.3 Chloride 101 Carbon Dioxide 28.0 Anion Gap 6 BUN 15 Creatinine 0.75 Estim Creat Clear Calc 105.15 Est GFR (MDRD) Af Amer 140 Est GFR (MDRD) Non-Af 116 BUN/Creatinine Ratio 19.9 Glucose 186 H Calcium 8.7 Total Bilirubin 0.50 AST 32 ALT 68 H Alkaline Phosphatase 61 Total Protein 7.1 Albumin 3.7 Globulin 3.4 Albumin/Globulin Ratio 1.1 Urine Color Yellow Urine Clarity Clear Urine pH 5.0 Ur Specific [place] 1.020 Urine Protein 30 H Urine Glucose (UA) Normal Urine Ketones 5 H Urine Occult Blood Negative Urine Nitrite Negative Urine Bilirubin Negative Urine Urobilinogen Normal Ur Leukocyte Esterase 25 H Urine RBC 0 SEEN Urine WBC 0-5 SEEN Ur Squamous Epith Cells 0 SEEN Urine Bacteria 0 SEEN Urine Mucus 0 SEEN <Dr. Afshin Jackson MD - Last Filed: 08/16/23 07:20> MDM MDM Narrative Medical decision making narrative: History gathered from: Patient and friend at bedside I have personally performed a face to face assessment of the patient and have reviewed the MICHAEL Note. I performed a substantive portion of the visit including all aspects of the following. My toribio findings include: History is remarkable for worsening generalized abdominal pain, scrotal pain and swelling. States symptoms are worse at night. He states his abdomen rolls when he turns at night. He denies vomiting diarrhea. He denies urologic symptoms other than the swollen scrotum and testicles. Patient denies fever, chills night sweats. Patient denies nausea. Patient denies intolerance to any food. Exam is unremarkable. Patient's blood pressure is slightly elevated. HEENT exam is unremarkable. Neck is supple. There is no carotid bruits. Lungs are clear auscultation. Heart is regular. Rate is normal. There is no murmur, gallop or rub. Abdomen soft flabby and pain out of proportion to light tactile stimulus. Bowel sounds are present normal. There is no palp pulsatile mass or abdominal bruit. There is no months of inguinal hernia or inguinal lymphadenopathy. No penile lesions or discharge. Testes descended bilaterally with normal lie. No swelling of the right or left testicle. There is no evidence of inguinal hernia. There is no evidence of scrotal cellulitis. There is no swelling or erythema in the perineal region. Furthermore, patient denied rectal pain. Medical Decision Making patient is insistent there is something wrong. He had a recent scan. At this point we will obtain blood work. Also UA was obtained. My suspicion patient has underlying psychiatric disorder and abdominal pain of unknown etiology. Other additions or changes: Based on patient's history physical findings is no indication for scrotal scan. There is no concern for testicular torsion or neoplasm. Patient is abdominal exam is benign and he had a recent scan, and in my personal opinion reimaging is not warranted. Test considered: I do not think he needs a scrotal ultrasound as he has had months of scrotal pain, has no swelling or tenderness on exam, no signs of cellulitis or Sherry's gangrene are present. Lab Data Attestation: I reviewed the patient's lab results. Lab results narrative: CBC is unremarkable. Competence of metabolic panel is unremarkable. UA is negative. Labs: Laboratory Results - last 24 hr 08/15/23 08/15/23 13:22 13:45 WBC 9.7 RBC 4.87 Hgb 16.4 Hct 45.9 MCV 94.3 H MCH 33.7 H MCHC 35.7 RDW Std Deviation 41.0 RDW Coeff of Kary 11.8 Plt Count 252 MPV 9.0 Immature Gran % (Auto) 0.400 Neut % (Auto) 59.7 Lymph % (Auto) 28.8 [place] % (Auto) 8.2 Eos % (Auto) 2.4 Baso % (Auto) 0.5 Absolute Neuts (auto) 5.8 Absolute Lymphs (auto) 2.79 Nucleated RBC % 0 Sodium 135 L Potassium 4.3 Chloride 101 Carbon Dioxide 28.0 Anion Gap 6 BUN 15 Creatinine 0.75 Estim Creat Clear Calc 105.15 Est GFR (MDRD) Af Amer 140 Est GFR (MDRD) Non-Af 116 BUN/Creatinine Ratio 19.9 Glucose 186 H Calcium 8.7 Total Bilirubin 0.50 AST 32 ALT 68 H Alkaline Phosphatase 61 Total Protein 7.1 Albumin 3.7 Globulin 3.4 Albumin/Globulin Ratio 1.1 Urine Color Yellow Urine Clarity Clear Urine pH 5.0 Ur Specific [place] 1.020 Urine Protein 30 H Urine Glucose (UA) Normal Urine Ketones 5 H Urine Occult Blood Negative Urine Nitrite Negative Urine Bilirubin Negative Urine Urobilinogen Normal Ur Leukocyte Esterase 25 H Urine RBC 0 SEEN Urine WBC 0-5 SEEN Ur Squamous Epith Cells 0 SEEN Urine Bacteria 0 SEEN Urine Mucus 0 SEEN Discharge Plan Triage Chief Complaint: Male Pain/Injury ED Midlevel Provider: Genevieve Rod ED Provider: Afshin Jackson Dx/Rx/DC Orders Clinical Impression: Chronic abdominal pain, Hyperlipidemia, Bipolar 1 disorder, GERD (gastroesophageal reflux disease), Sinus tachycardia seen on electronic device monitor Instructions: Abdominal Pain Prescriptions: No Action olanzapine 10 mg tablet 10 mg PO QHS Lantus Solostar U-100 Insulin 100 unit/mL (3 mL) insulin pen 30 unit subcut DAILY pantoprazole 40 mg tablet,delayed release (DR/EC) 40 mg PO DAILY Qty: 30 4RF atorvastatin 20 MG tablet 20 mg PO QHS metformin 1,000 MG tablet 1,000 mg PO BID glimepiride 4 MG tablet 4 mg PO DAILY lisinopril 2.5 MG tablet 2.5 mg PO DAILY fenofibrate nanocrystallized 145 MG tablet 145 mg PO DAILY ondansetron HCl [Zofran] 4 mg tablet 4 mg PO Q8H PRN (Reason: nausea and vomiting) Qty: 14 0RF dicyclomine 20 mg tablet 20 mg PO TID PRN (Reason: abdominal pain ) Qty: 20 0RF sucralfate 1 gram tablet 1 g PO 4X/DAY Qty: 56 0RF Rx Instructions: Take 1 hour before meals and at bedtime levofloxacin 500 mg tablet 500 mg PO DAILY Qty: 19 0RF trazodone 100 mg tablet gabapentin 300 mg capsule 300 mg PO TID Patient Comments: take 1 capsule by mouth at bedtime buspirone 7.5 mg tablet 2 tab PO BID furosemide 20 mg tablet 1 tab PO DAILY risperidone 1 mg tablet 1 tab PO QHS escitalopram oxalate 10 mg tablet senna 8.6 mg Capsule 8.6 mg PO BID insulin glargine [Lantus Solostar U-100 Insulin] 100 unit/mL (3 mL) insulin pen SUBCUT melatonin 5 mg Capsule 5 mg PO QHS Trulicity 0.75 mg/0.5 mL pen injector 1 ea SUBCUT X1 Rx Instructions: QWEEKLY FOR 90 DAYS Januvia 50 mg PO.IVFORM DAILY azithromycin 250 mg tablet 250 mg PO DAILY Qty: 4 0RF Primary Care Provider: Estevan Banks Referrals: Estevan Banks DO [Primary Care Provider] - Activity Restrictions/Additional Instructions: Your blood work and urine show no abnormalities. Your CT scan on July 25 for the same symptoms showed that you have constipation but no other abnormal findings. I recommend you take [id number] MiraLAX as needed for constipation and you need to follow-up with the GI doctor for further evaluation. Disposition Disposition: Home, Self Care Discharge Date/Time: 08/15/23 14:16
[2023-08-15 13:32] LABS: Absolute Lymphocyte Count 2.79 X10^3/uL (0.83-4.51); Absolute Neutrophil Count 5.8 X10^3/uL (2.0-7.7); Basophil# 0.05 X10^3/uL; Basophil% 0.5 % (0-1); Eosinophil# 0.23 X10^3/uL; Eosinophils% 2.4 % (0-5); Hematocrit 45.9 % (40-54); Hemoglobin 16.4 g/dL (13.0-16.5); Lymphocyte # 2.79 X10^3/ul (0.83-4.51); Lymphocyte % 28.8 % (19-41); Mean Corp Hgb Conc 35.7 g/dL (32-36); Mean Corpuscular Hgb 33.7 pg (27.0-32.0); Mean Corpuscular Volume 94.3 fL (80-94); Monocyte% 8.2 % (0-10); NRBC Flagged by Analyzer 0 % (0-5); Neutrophil # 5.79 X10^3/uL (2.7-7.7); Neutrophil % 59.7 % (47-70); Platelet Count 252 K/mm3 (150-450); RBC Distribution Width CV 11.8 % (11.6-14.6); Red Blood Count 4.87 M/mm3 (4.6-6.2); White Blood Count 9.7 K/mm3 (4.4-11.0)
[2023-08-15 13:44] LABS: ALB/GLOB Ratio 1.1 RATIO (0.9-2.4); AST(SGOT) 32 U/L (15-37); Alanine Aminotransfer ALT/SGPT 68 U/L (16-61); Albumin, Serum 3.7 g/dL (3.2-5.0); Alkaline Phosphatase 61 U/L (45-117); Anion Gap 6 (5-15); BUN 15 mg/dL (7-18); BUN/Creat Ratio 19.9 RATIO (10-20); Calcium,Total 8.7 mg/dL (8.5-10.1); Chloride 101 mmol/L (98-107); Creatinine, Serum 0.75 mg/dL (0.70-1.30); EST Glomerular Filtration Rate 116 mL/min (>60); Est Glom Filt Rate - Afr Amer 140 mL/min (>60); Estimated Creatinine Clearance 105.15 ml/min; Globulin 3.4 g/dL (2.2-4.2); Glucose 186 mg/dL (74-106); Potassium 4.3 mmol/L (3.5-5.1); Protein, Total 7.1 g/dL (6.4-8.2); Sodium Level 135 mmol/L (136-145)
[2023-08-15 13:48] LABS: Bacteria 0 SEEN /hpf (None Seen); Mucous, Urine 0 SEEN /hpf (<or=2+); Red Blood Cells-Urine 0 SEEN /hpf (0-5); Squamous Epithelial Cells - UA 0 SEEN /hpf (0-5)
[2023-08-15] MEDS: Ketorolac 15 MG/ML Vial IV (13:48)
[2023-08-15 13:52] LABS: Color, Urine Yellow (Yellow); Glucose, Dipstick Normal (Normal); Ketone-Dipstick 5 mg/dl (Negative); Leukocyte Esterase-Dipstick 25 /ul (Negative); Nitrite-Dipstick Negative (Negative); Occult Blood-Urine Negative /ul (Negative); Protein-Dipstick 30 mg/dl (Negative); Urine Bilirubin Dipstick Negative (Negative); Urine Clarity Clear (Clear); Urine Urobilinogen Normal (Normal)
[2023-08-15 14:02] LABS: White Blood Cells 0-5 SEEN /hpf (0-5)
== END 2023-08-15 14:16 | disposition home or self-care (01) ==
LOC: ED 14:14
PROVIDERS: Physician Assistant; Emergency Provider Emergency Medicine; Referring Provider Emergency Medicine; Visit Provider Emergency Medicine
DX: R10.9 Unspecified abdominal pain (principal); F31.9 Bipolar disorder, unspecified; E11.40 Type 2 diabetes mellitus with diabetic neuropathy, unspecified; R00.0 Tachycardia, unspecified; E78.00 Pure hypercholesterolemia, unspecified; I10 Essential (primary) hypertension; K21.9 Gastro-esophageal reflux disease without esophagitis; N50.82 Scrotal pain; G89.29 Other chronic pain
CPT/HCPCS: 80053; 81001; 85025; 96374; 99284

== ENCOUNTER → 2023-10-03 | Outpatient (CLI) | payer MEDICARE, MEDICAID, SELFPAY ==
[2023-10-03 11:27] LABS: AST(SGOT) 32 U/L (15-37); Alanine Aminotransfer ALT/SGPT 67 U/L (16-61); Albumin, Serum 3.4 g/dL (3.2-5.0); Alkaline Phosphatase 66 U/L (45-117); Amylase 34 U/L (25-115); Anion Gap 7 (5-15); BUN 14 mg/dL (7-18); BUN/Creat Ratio 15.5 RATIO (10-20); Calcium,Total 8.8 mg/dL (8.5-10.1); Chloride 102 mmol/L (98-107); EST Glomerular Filtration Rate 94 mL/min (>60); Est Glom Filt Rate - Afr Amer 113 mL/min (>60); Globulin 3.5 g/dL (2.2-4.2); Glucose 296 mg/dL (74-106); Lipase 14 U/L (13-75); Potassium 3.9 mmol/L (3.5-5.1); Protein, Total 6.9 g/dL (6.4-8.2); Sodium Level 135 mmol/L (136-145)
[2023-10-04 14:09] LABS: Deamidated Gliadin IgA 7 units (0-19); Deamidated Gliadin IgG 2 units (0-19); Immunoglobulin A 151 mg/dL (90-386); t-Transglutaminase IgA <2 U/mL (0-3)
== END | disposition home or self-care (01) ==
PROVIDERS: Referring Provider Internal Medicine Gastroenterology; Visit Provider Internal Medicine Gastroenterology
DX: R14.0 Abdominal distension (gaseous) (principal); R10.9 Unspecified abdominal pain; K58.1 Irritable bowel syndrome with constipation; R13.10 Dysphagia, unspecified; R11.0 Nausea
CPT/HCPCS: 36415; 80053; 82150; 82784; 83516; 83690

== ENCOUNTER 2024-12-01 06:19 | Observation (INO) | payer MEDICARE, MEDICAID, SELFPAY ==
[2024-12-01] VITALS (9 sets, daily range): BP systolic 118–135; BP diastolic 76–90; PULSE 78–113; RESP 16–20; TEMP 36.3–37.2; O2SAT 91–98; BMI 40.2; BMI 38.2
--- NOTE | 2024-12-01 06:28 | EKG12_ITS ---
Test Reason : FALL Blood Pressure : */* mmHG Vent. Rate : 109 BPM Atrial Rate : 109 BPM P-R Int : 160 ms QRS Dur : 90 ms QT Int : 354 ms P-R-T Axes : 31 -13 7 degrees QTcB Int : 476 ms Sinus tachycardia Otherwise normal ECG When compared with ECG of 25-Jul-2023 21:02, No significant change was found Confirmed by Adria Martinez ([id number]), market editor DON LORD ([id number]) on 12/06/2024 10:00:55 AM Referred By: Confirmed By: Adria Martinez
--- NOTE | 2024-12-01 06:29 | CT_ITS ---
PROCEDURE: BRAIN/HEAD WITHOUT CONTRAST 12/01/2024 REASON FOR EXAM: TRAUMA TECHNIQUE: Head CT without intravenous contrast. Coronal and Sagittal reconstruction series were provided. One or more dose reduction techniques were used (e.g., Automated exposure control, adjustment of the mA and/or kV according to patient size, use of iterative reconstruction technique. RADIATION DOSE SUMMARY: CTDlvol: 44.99 mGy DLP: 779.24 mGycm COMPARISON: None available FINDINGS: No intracranial hemorrhage, mass effect or calvarial fracture. The ventricles are within limits and midline. Convexity volume loss, atrophy. The visualized paranasal sinuses, mastoids and orbits appear within limits. CT/Brain/Head without Contrast IMPRESSION: No intracranial hemorrhage, mass effect or calvarial fracture. Reading Location: [id number]
--- NOTE | 2024-12-01 06:29 | CT_ITS ---
PROCEDURE: SPINE CERVICAL WITHOUT CONTRAS 12/01/2024 REASON FOR EXAM: TRAUMA TECHNIQUE: Cervical spine CT without contrast. Coronal and Sagittal reconstruction series were provided. One or more dose reduction techniques were used (e.g., Automated exposure control, adjustment of the mA and/or kV according to patient size, use of iterative reconstruction technique RADIATION DOSE SUMMARY: CTDlvol: 28.59 mGy DLP: 601.59 mGycm COMPARISON: 10/30/2024 FINDINGS: Motion artifact limits the evaluation particularly at C3, C5 and C6. A definite fracture or malalignment is not identified. Straightening may represent positioning or spasm. No prevertebral soft tissue swelling. Spondylosis/discogenic change appears greatest at C5-6 with severe disc space narrowing, endplate degenerative changes and posterior disc osteophyte complex again suggested with central and bilateral foraminal narrowing. Visualized apices appear clear. CT/Spine Cervical without Contras IMPRESSION: Motion artifact limits the evaluation particularly at C3, C5 and C6. A definite fracture or malalignment is not identified. Straightening may represent positioning or spasm. No prevertebral soft tissue s welling. Spondylosis/discogenic change appears greatest at C5-6 with severe disc space n arrowing, endplate degenerative changes and posterior disc osteophyte complex again suggested with central and bilateral fo raminal narrowing. Reading Location: [id number]
--- NOTE | 2024-12-01 06:37 | EDS_ITS ---
HPI History of Present Illness Chief Complaint: Fall Narrative Narrative: Patient is a 53-year-old male past medical history of KATE, hypercholesteremia, bipolar disorder, hyperlipidemia, diabetes who presented to the emergency department chief plaint of generalized weakness. According to patient's family at bedside and EMS the patient was having a sleep study done and when he woke up he was noted be very weak. They thought that originally his glucose was low therefore they tried to give him pop and candy bars in hopes that this would resolve the symptoms it did not therefore they sent him here for further evaluation management. Patient's family at bedside noted that he attempted to stand up and he was so weak that he fell backwards he did hit his head. He states that he is not on any blood thinning medications. [facility] Medical History Lesion of cecum Neuropathy NORA (generalized anxiety disorder) Insomnia KATE (obstructive sleep apnea) Abdominal bloating Leg swelling Orchitis of left testicle Yeast dermatitis of penis Polyp of colon Wears glasses Insulin dependent diabetes mellitus High cholesterol Dietary restriction Hx of abdominal pain Heartburn Non-smoker Hypertension Chest pain Developmental disability Rosacea Hypersomnia Bipolar 1 disorder Anxiety and depression Hyperlipidemia Diabetes mellitus type 2 in obese Home Medications ?Medication ?Instructions ?Recorded ?Last Taken ?Type atorvastatin 20 mg tablet 20 mg PO QHS 01/26/20 Unknow n History pantoprazole 40 mg tablet,delayed 40 mg PO DAILY #30 t abs 01/19/21 Unknown Rx release sennosides 8.6 mg capsule (senna) 8.6 mg PO BID Unknown History trazodone 100 mg tablet tab 03/25/22 Unknown History benztropine 1 mg tablet 1 mg PO BID 12/01/24 Unknown History duloxetine 60 mg capsule,delayed 60 mg PO DAILY Unknown History release fluticasone propionate 50 spray intranasal 12/01/24 Un known History mcg/actuation nasal spray,suspension gabapentin 800 mg tablet 800 mg PO TID 12/01/24 Unkno wn History glipizide 10 mg tablet, extended 10 mg PO BID 12/01/24 Unknown History release 24 hr insulin NPH-regular 70-30 U-100 subcut 12/01/24 Unknow n History insulin 100 unit/mL subcutaneous pen (Humulin 70/30 U-100 Riley) metformin 500 mg tablet,extended 1,000 mg PO BID 12/01 Unknown History release 24 hr pioglitazone 45 mg tablet 45 mg PO DAILY 12/01/24 Unkn own History risperidone 4 mg tablet 4 mg PO QHS 12/01/24 Unknown History Allergy/AdvReac Type Severity Reaction Status Date / Time No Known Allergies Allergy Verified 08/15/23 12:38 Family History Mother Diabetes Father Heart disease Diabetes Surgical History History of uvulectomy History of cholecystectomy History of hernia repair Hx of tonsillectomy Social History Smoking Status: Never smoker ROS ROS ED ROS Narrative Constitutional: Denies fevers, chills, headaches Eyes: Denies change in vision double vision blurry vision Cardiovascular: Denies chest pain Respiratory: Denies coughing shortness of breath Abdomen: Denies abdominal pain nausea vomit diarrhea : Denies urinary symptoms Neurological: Denies numbness, weakness, tingling Musculoskeletal: Denies back pain Skin: Denies rashes or lesions EXAM Physical Exam Narrative Exam Narrative: General: Patient lying in bed rest comfortably did not appear to be in acute distress Head: Atraumatic, normocephalic Eyes: PERRL bilaterally, EOMI bilateral, no conjunctival injection noted Neck: Soft, supple, trachea midline Cardiovascular: Patient tachycardic with a regular rhythm Respiratory: Clear to auscultation bilaterally coarse upper respiratory sounds noted Abdomen: Soft, nondistended, tender to palpation Extremities: +4/5 strength noted in the bilateral upper and lower extremities, radial pulse +2/4 in the bilateral extremities Neurological: Patient did appear to be confused and was not acting his normal self according to family member at bedside. They state that he does have a developmental disability but he is still not acting his normal self Skin: Denies rashes or lesions Const Vital Signs: 12/01/24 06:22 12/01/24 06:25 12/01/24 06:25 Temperature 97.3 F L 97.3 F L Temperature Source Temporal Temporal Pulse Rate 110 H 113 H Respiratory Rate 17 17 Respiratory Effort Normal Respiratory Depth Normal Respiratory Pattern Normal Blood Pressure 129/77 H 129/77 H Blood Pressure Mean 94 94 Pulse Ox 91 94 Oxygen Delivery Method Nasal Cannula Nasal Cannula Nasal Cannula Oxygen Flow Rate (L/min) 2 2 2 12/01/24 07:25 12/01/24 08:00 Temperature 98.9 F 98.7 F Temperature Source Oral Oral Pulse Rate 78 99 Respiratory Rate 16 16 Respiratory Effort Respiratory Depth Respiratory Pattern Blood Pressure 134/78 H 118/76 Blood Pressure Mean 96 90 Pulse Ox 98 96 Oxygen Delivery Method Room Air Nasal Cannula Oxygen Flow Rate (L/min) 4 MDM MDM MDM Narrative Medical decision making narrative: Patient is a 46-euvv-yce-year-old male with who presents from sleep lab with a chief complaint of altered mental status and generalized weakness. On the differential diagnose includes but not limited to intracranial hemorrhage, hypercapnia, electrolyte abnormality. Once workup is obtained reviewed he will be reevaluated. Patient will be given IV fluids for hydration. Patient CBC was reviewed and showed no no evidence leukocytosis white blood count 8.2, hemoglobin 14.1, plate count was 196. Patient's arterial blood gas reviewed showed a pH 7.41 with a pCO2 of 47.8. Patient sodium normal 130, potassium normal 3.1, creatinine was 0.85. Patient AST and ALT were 40 and 54 respectively, proBNP and troponin pending. Patient's EKG reviewed and showed sinus tachycardia with a rate of 109 bpm patient's chest x-ray was reviewed by myself and by radiology which showed no acute cardiopulmonary processes. Patient CT head and brain without contrast showed no acute intracranial hemorrhage, CT cervical spine reviewed and showed no definitive fracture or camilla lignment there was motion artifact noted. Patient did have episodes of hypoxia here in the emergency department while off of nasal cannula down to 70% therefore they placed him back on oxygen here in the emergency department. I did add on a CT angiography of the chest that is pending. At this point time will discuss case with hospitalist for admission for his altered mental status, hypoxia. Did discuss case with hospitalist Dr. Lovett who states that he will wait to put in admission orders until the CTA of the chest is back. This was signed out to oncoming provider to follow-up on. Patient was notified is agreeable this plan all question concerns answered bedside. Lab Data Labs: Laboratory Results - last 24 hr 12/01/24 06:25 WBC 8.2 RBC 4.57 L Hgb 14.1 Hct 42.5 MCV 93.0 MCH 30.9 MCHC 33.2 RDW Std Deviation 46.7 H RDW Coeff of Kary 13.7 Plt Count 196 MPV 10.0 Immature Gran % (Auto) 0.400 Neut % (Auto) 59.6 Lymph % (Auto) 28.7 Bryan % (Auto) 8.3 Eos % (Auto) 2.6 Baso % (Auto) 0.4 Absolute Neuts (auto) 4.9 Absolute Lymphs (auto) 2.35 Nucleated RBC % 0 Sodium 138 Potassium 3.8 Chloride 97 L Carbon Dioxide 26.0 Anion Gap 15 BUN 11 Creatinine 0.85 Estim Creat Clear Calc 120.09 Est GFR (MDRD) Non-Af 105 BUN/Creatinine Ratio 13.3 Glucose 281 H Calcium 9.3 Total Bilirubin 0.39 Direct Bilirubin 0.19 AST 40 H ALT 54 H Alkaline Phosphatase 95 Troponin T High Sens 20 NT pro BNP II < 36 Total Protein 6.7 Albumin 4.0 Globulin 2.8 ABG Data ABG results: ABG 12/01/24 06:59 Specimen Type ART Sample Site L Brach pH 7.41 Bicarbonate Actual 30.4 H Total CO2 32 Base Excess 6 H O2 Saturation 99 ABG pCO2 47.8 H ABG pO2 120 H O2 Delivery Device CANNULA Vent Mode Not entered Radiography Diagnostic Testing: Clinical Impression(s) from Imaging Studies Brain CT 12/01/24 06:29 IMPRESSION: No intracranial hemorrhage, mass effect or calvarial fracture. Reading Location: [facility] Cervical Spine CT 12/01/24 06:29 IMPRESSION: Motion artifact limits the evaluation particularly at C3, C5 and C6. A definite fracture or malalignment is not identified. Straightening may represent positioning or spasm. No prevertebral soft tissue swelling. Spondylosis/discogenic change appears greatest at C5-6 with severe disc space narrowing, endplate degenerative changes and posterior disc osteophyte complex again suggested with central and bilateral foraminal narrowing. Reading Location: [facility] Chest X-Ray 12/01/24 07:20 IMPRESSION: No evidence of acute disease. Reading Location: [facility] Discharge Plan Triage Chief Complaint: Fall ED Provider: Rashard Sanz Dx/Rx/DC Orders Clinical Impression: Altered mental status, Acute hypoxic respiratory failure Prescriptions: No Action pantoprazole 40 mg tablet,delayed release (DR/EC) 40 mg PO DAILY Qty: 30 4RF atorvastatin 20 MG tablet 20 mg PO QHS trazodone 100 mg tablet 100 mg PO DAILY senna 8.6 mg Capsule 8.6 mg PO BID risperidone 4 mg tablet 4 mg PO QHS glipizide 10 mg tablet extended release 24hr 10 mg PO BID pioglitazone 45 mg tablet 45 mg PO DAILY gabapentin 800 mg tablet 800 mg PO TID benztropine 1 mg tablet 1 mg PO BID fluticasone propionate 50 mcg/actuation spray,suspension INTRANASAL metformin 500 mg tablet extended release 24 hr 1,000 mg PO BID duloxetine 60 mg capsule,delayed release(DR/EC) 60 mg PO DAILY Humulin 70/30 U-100 KwikPen 100 unit/mL (70-30) insulin pen 64 unit subcut BID Primary Care Provider: Estevan Banks Referrals: Estevan Banks DO [Primary Care Provider] - Print Language: Croatian
[2024-12-01 06:38] LABS: Absolute Lymphocyte Count 2.35 X10^3/uL (0.83-4.51); Absolute Neutrophil Count 4.9 X10^3/uL (2.0-7.7); Basophil# 0.03 X10^3/uL; Basophil% 0.4 % (0-1); Eosinophil# 0.21 X10^3/uL; Eosinophils% 2.6 % (0-5); Hematocrit 42.5 % (40-54); Hemoglobin 14.1 g/dL (13.0-16.5); Lymphocyte # 2.35 X10^3/ul (0.83-4.51); Lymphocyte % 28.7 % (19-41); Mean Corp Hgb Conc 33.2 g/dL (32-36); Mean Corpuscular Hgb 30.9 pg (27.0-32.0); Monocyte# 0.68 X10^3/uL; Monocyte% 8.3 % (0-10); NRBC Flagged by Analyzer 0 % (0-5); Neutrophil # 4.89 X10^3/uL (2.7-7.7); Neutrophil % 59.6 % (47-70); Platelet Count 196 K/mm3 (150-450); RBC Distribution Width CV 13.7 % (11.6-14.6); RBC Distribution Width SD 46.7 fl (35.1-43.9); Red Blood Count 4.57 M/mm3 (4.6-6.2); White Blood Count 8.2 K/mm3 (4.4-11.0)
[2024-12-01 07:04] LABS: Base Excess 6 mmol/L (-2 to +2); Bicarbonate 30.4 mmol/L (22-26); Blood Gas Specimen Type ART; Mode Not entered; PO2 120 mmHG (75-100); SITE L Brach; SO2 99 % (95-99); Total Carbon Dioxide 32 mmol/L; pCO2 47.8 mmHg (35-45); pH 7.41 (7.35-7.45)
--- NOTE | 2024-12-01 07:20 | RAD_ITS ---
PROCEDURE: CHEST PA AND LATERAL 12/01/2024 REASON FOR EXAM: SOB TECHNIQUE: Frontal and lateral views of the chest. COMPARISON: 09/17/2024 FINDINGS: The lungs appear clear. The cardiac and mediastinal contours appear within limits. The visualized osseous structures appear within limits. Status post cholecystectomy. RAD/Chest PA and Lateral IMPRESSION: No evidence of acute disease. Reading Location: [id number]
[2024-12-01 07:26] LABS: O2 Delivery Device CANNULA
[2024-12-01 07:49] LABS: AST(SGOT) 40 U/L (<=37); Alanine Aminotransfer ALT/SGPT 54 U/L (<=46); Alkaline Phosphatase 95 U/L (40-129); Anion Gap 15 (5-15); BUN 11 mg/dL (4-19); BUN/Creat Ratio 13.3 RATIO (10-20); Bilirubin, Direct 0.19 mg/dL (0.00-0.30); Calcium,Total 9.3 mg/dL (7.6-11.0); Chloride 97 mmol/L (98-108); Creatinine, Serum 0.85 mg/dL (0.70-1.20); EST Glomerular Filtration Rate 105 (>60); Estimated Creatinine Clearance 120.09 ml/min (50-250); Globulin 2.8 g/dL (2.2-4.2); Glucose 281 mg/dL (70-99); Potassium 3.8 mmol/L (3.3-5.1); Protein, Total 6.7 g/dL (5.9-8.4); Sodium Level 138 mmol/L (133-145); Total Bilirubin 0.39 mg/dL (0.00-1.30)
--- NOTE | 2024-12-01 07:59 | CT_ITS ---
PROCEDURE: CTA CHEST W/WO CONTRAST 12/01/2024 REASON FOR EXAM: 53-year-old male, hypoxia, cough, weakness and fall today. TECHNIQUE: CTA axial imaging of the chest with intravenous contrast. Coronal and Sagittal reconstruction series were provided. 3D, 3D post processing, 3D reconstructions, Maximum intensity projection (MIPs) Volume rendering and Shaded surface rendering was provided. PATIENT PREPARATION: Per protocol CONTRAST: Isovue-300 VOLUME: 100mL One or more dose reduction techniques were used (e.g., Automated exposure control, adjustment of the mA and/or kV according to patient size, use of iterative reconstruction technique). RADIATION DOSE SUMMARY: CTDlvol: 26 mGy DLP: 500 mGycm COMPARISON: CT chest 10/19/2024. FINDINGS: Hardware: None. Lymph nodes: No axillary, mediastinal or hilar lymphadenopathy. Heart: Moderate cardiomegaly without pericardial effusion. Mild coronary artery and thoracic aortic calcifications. The great vessels are normal in caliber. Pulmonary Vessels: No central filling defect within the segmental or subsegmental pulmonary arteries. Lungs and Airways: The central airways are patent. Mosaic attenuation of the bilateral lungs due to expiratory phase imaging. Small focal area of ground-glass nodularity within the anterior right upper lobe (sagittal image 110). Trace pleural effusions and pleural fluid within the left fissure. No pneumothorax. Upper Abdomen: Unremarkable. Bones: Thoracic spondylosis. Mild rightward curvature of the midthoracic spine. CT/CTA Chest W/WO Contrast IMPRESSION: 1. No acute pulmonary embolism. 2. Moderate cardiomegaly and trace pleural effusions, compatible with CHF/volum e overload. 3. Small focal area of ground-glass nodularity within the right upper lobe, lik lila infectious/inflammatory etiology. Reading Location: [id number]
[2024-12-01 08:02] LABS: Pro- Brain NATRIURETIC PEPTIDE < 36 pg/mL (<=900)
[2024-12-01 08:12] LABS: Troponin T High Sensitivity 20 ng/L (<=22)
[2024-12-01 08:37] LABS: Prothrombin Time (Protime)PT. 13.7 SECONDS (11.7-14.9)
[2024-12-01 08:38] LABS: Partial Thromboplast Time 27.1 Seconds (24.1-36.2)
[2024-12-01 10:07] LABS: Troponin T High Sens 2 HR 21 ng/L (<=22)
[2024-12-01 10:49] LABS: Bacteria 0 SEEN /hpf (None Seen); Mucous, Urine 0 SEEN /hpf (<or=2+); Squamous Epithelial Cells - UA 0 SEEN /hpf (0-5); White Blood Cells 0 SEEN /hpf (0-5)
[2024-12-01 10:50] LABS: Color, Urine Yellow (Yellow); Glucose, Dipstick 1000 mg/dl (Normal); Ketone-Dipstick 5 mg/dl (Negative); Leukocyte Esterase-Dipstick Negative /ul (Negative); Nitrite-Dipstick Negative (Negative); Occult Blood-Urine 10 /ul (Negative); Protein-Dipstick 30 mg/dl (Negative); Specific Gravity, Urine 1.015 (1.002-1.030); Urine Bilirubin Dipstick Negative (Negative); Urine Clarity Clear (Clear); Urine Urobilinogen Normal (Normal)
[2024-12-01 10:58] LABS: Red Blood Cells-Urine 0 SEEN /hpf (0-5)
[2024-12-01] MEDS: Insulin Lispro 100 UNIT/ML INSULN.PEN SC ×3 (11:29→21:38)
[2024-12-01] MEDS: Benztropine 2 MG Tablet 1 MG PO ×2 (11:30→21:37)
[2024-12-01] MEDS: Senna Tablet 1 TABLET PO (11:31)
[2024-12-01] MEDS: Pantoprazole Sodium 40 MG Tablet PO (11:31)
[2024-12-01] MEDS: DULoxetine Hcl 60 MG Capsule PO (11:31)
[2024-12-01] MEDS: Insulin NPH Human 100 UNITS/ML PEN 64 UNITS SC ×2 (11:32→21:37)
[2024-12-01 12:02] LABS: Bedside Glucose 316 mg/dL (74-106)
[2024-12-01 12:49] LABS: Troponin T High Sens 4 HR 20 ng/L (<=22)
--- NOTE | 2024-12-01 14:51 | PCM.HP.STD ---
HPI - General General Date of Admission: 12/01/24 HPI Narrative STEPHANIE KEYES, is a 53 M who presents to the hospital with altered mental status and weakness. A friend of his from [place] was picking them up from a sleep study this morning and he was confused and altered and fell twice after the sleep study. In the ER workup was unremarkable, no leukocytosis, cervical spine CT and chest x-ray were normal CT of the chest was also unremarkable no signs of a PE. But for some reason he was hypoxic down to 70%. He does not normally wear oxygen at home home. CT of the brain was normal. Viral studies were all negative and the ABG demonstrated pCO2 of 47.8 with a pO2 of 120. Upon my evaluation he was alert and oriented and the caregiver who is at his bedside is said that this was his baseline now. He is complaining of some knee pain and this was not x-rayed in the ER so we will obtain an x-ray on the inpatient side. [facility] Medical History Lesion of cecum Neuropathy NOAR (generalized anxiety disorder) Insomnia KATE (obstructive sleep apnea) Abdominal bloating Leg swelling Orchitis of left testicle Yeast dermatitis of penis Polyp of colon Wears glasses Insulin dependent diabetes mellitus High cholesterol Dietary restriction Hx of abdominal pain Heartburn Non-smoker Hypertension Chest pain Developmental disability Rosacea Hypersomnia Bipolar 1 disorder Anxiety and depression Hyperlipidemia Diabetes mellitus type 2 in obese Home Medications ?Medication ?Instructions ?Recorded ?Last Taken ?Type atorvastatin 20 mg tablet 20 mg PO QHS 01/26/20 11/30/24 History pantoprazole 40 mg tablet,delayed 40 mg PO DAILY #30 tabs 01/19/21 11/30/24 Rx release sennosides 8.6 mg capsule (senna) 8.6 mg PO BID 03/25/22 Unknown History trazodone 100 mg tablet 100 mg PO DAILY 03/25/22 11/30/24 History benztropine 1 mg tablet 1 mg PO BID 12/01/24 11/30/24 History duloxetine 60 mg capsule,delayed 60 mg PO DAILY 12/01/24 11/30/24 History release fluticasone propionate 50 spray intranasal 12/01/24 11/30/24 History mcg/actuation nasal spray,suspension gabapentin 800 mg tablet 800 mg PO TID 12/01/24 11/30/24 History glipizide 10 mg tablet, extended 10 mg PO BID 12/01/24 11/30/24 History release 24 hr insulin NPH-regular 70-30 U-100 64 unit subcut BID 12/01/24 11/30/24 History insulin 100 unit/mL subcutaneous pen (Humulin 70/30 U-100 KwikPen) metformin 500 mg tablet,extended 1,000 mg PO BID 12/01/24 11/30/24 History release 24 hr pioglitazone 45 mg tablet 45 mg PO DAILY 12/01/24 11/30/24 History risperidone 4 mg tablet 4 mg PO QHS 12/01/24 11/30/24 History Allergy/AdvReac Type Severity Reaction Status Date / Time No Known Allergies Allergy Verified 08/15/23 12:38 Family History Mother Diabetes Father Heart disease Diabetes Surgical History History of uvulectomy History of cholecystectomy History of hernia repair Hx of tonsillectomy Social History Smoking Status: Never smoker ROS Constitutional Constitutional: Reports weakness; Denies chills, fatigue, fever(s) or malaise Eyes Eyes: Denies blurry vision ENT HEENT: Denies headache(s) or nasal discharge Cardiovascular Cardiovascular: Denies chest pain, dyspnea on exertion or syncope Respiratory/Chest Respiratory/Chest: Reports excessive phlegm production and shortness of breath at rest; Denies cough or shortness of breath with exertion Gastrointestinal Gastrointestinal: Denies constipation, diarrhea, nausea or vomiting Genitourinary Genitourinary: Denies dysuria Neurologic Neurologic: Denies focal weakness, numbness or tremor(s) Psychiatric Psychiatric: Denies anxiety or depression Vital Signs Vital Signs Vital Signs: 12/01/24 06:22 12/01/24 06:25 12/01/24 06:25 Temperature 97.3 F L 97.3 F L Temperature Source Temporal Temporal Pulse Rate 110 H 113 H Respiratory Rate 17 17 Respiratory Effort Normal Respiratory Depth Normal Respiratory Pattern Normal Blood Pressure 129/77 H 129/77 H Blood Pressure Mean 94 94 Blood Pressure Source Blood Pressure Position Blood Pressure Location Pulse Ox 91 94 Oxygen Delivery Method Nasal Cannula Nasal Cannula Nasal Cannula Oxygen Flow Rate (L/min) 2 2 2 12/01/24 07:25 12/01/24 08:00 12/01/24 09:00 Temperature 98.9 F 98.7 F 97.8 F Temperature Source Oral Oral Oral Pulse Rate 78 99 89 Respiratory Rate 16 16 20 H Respiratory Effort Respiratory Depth Respiratory Pattern Blood Pressure 134/78 H 118/76 118/76 Blood Pressure Mean 96 90 90 Blood Pressure Source Blood Pressure Position Blood Pressure Location Pulse Ox 98 96 95 Oxygen Delivery Method Room Air Nasal Cannula Nasal Cannula Oxygen Flow Rate (L/min) 4 4 12/01/24 10:35 12/01/24 10:41 12/01/24 14:37 Temperature 97.5 F L 97.8 F Temperature Source Oral Temporal Pulse Rate 96 97 Respiratory Rate 18 20 H Respiratory Effort Normal Respiratory Depth Respiratory Pattern Blood Pressure 135/89 H 131/85 H Blood Pressure Mean 104 100 Blood Pressure Source Monitor Monitor Blood Pressure Position Semi-Fowlers Semi-Fowlers Blood Pressure Location Right Arm Right Arm Pulse Ox 97 93 Oxygen Delivery Method Nasal Cannula Room Air Oxygen Flow Rate (L/min) 3 12/01/24 14:37 Temperature Temperature Source Pulse Rate Respiratory Rate Respiratory Effort Respiratory Depth Respiratory Pattern Blood Pressure Blood Pressure Mean Blood Pressure Source Blood Pressure Position Blood Pressure Location Pulse Ox 97 Oxygen Delivery Method Oxygen Flow Rate (L/min) 2 Weight Weight: 236 lb 12.423 oz Body Mass Index (BMI) 38.2 Physical Exam Narrative General: Alert, Oriented x3, Cooperative, No apparent distress HEENT: Atraumatic, PERRLA, EOMI, Normocephalic Oral: Moist Mucosa Neck: Supple, No JVD Lungs: Diminished, Normal air movement, No rhonchi, No wheeze, No rales, coarse breath sounds bilaterally Cardiovascular: Tachycardic, Regular Rhythm, Normal S1, Normal S2, No murmurs Abdomen: Soft, Non Tender, Non-Distended, No Hepato-splenomegaly Extremities: No edema, Capillary Refill Less than 3 Seconds Skin: No rashes, No breakdown Musculoskeletal: Mild tenderness to palpation of his medial knee on the left Neurological: No focal neurological deficits, moves all extremities, Sensory exam intact to light touch and pain Psych/Mental Status: Normal Affect, Appropriate Results Lab / Micro Data 12/01/24 06:25 12/01/24 06:25 Labs: Laboratory Results - last 24 hr 12/01/24 06:25: WBC 8.2, RBC 4.57 L, Hgb 14.1, Hct 42.5, MCV 93.0, MCH 30.9, MCHC 33.2, RDW Std Deviation 46.7 H, RDW Coeff of Kary 13.7, Plt Count 196, MPV 10.0, Immature Gran % (Auto) 0.400, Neut % (Auto) 59.6, Lymph % (Auto) 28.7, Dillon % (Auto) 8.3, Eos % (Auto) 2.6, Baso % (Auto) 0.4, Absolute Neuts (auto) 4.9, Absolute Lymphs (auto) 2.35, Nucleated RBC % 0, PT 13.7, INR 1.0, APTT 27.1, Sodium 138, Potassium 3.8, Chloride 97 L, Carbon Dioxide 26.0, Anion Gap 15, BUN 11, Creatinine 0.85, Estim Creat Clear Calc 120.09, Est GFR (MDRD) Non-Af 105, BUN/Creatinine Ratio 13.3, Glucose 281 H, Calcium 9.3, Total Bilirubin 0.39, Direct Bilirubin 0.19, AST 40 H, ALT 54 H, Alkaline Phosphatase 95, Troponin T High Sens 20, NT pro BNP II < 36, Total Protein 6.7, Albumin 4.0, Globulin 2.8 12/01/24 09:29: Troponin T Hi Sens 2 Hr 21 12/01/24 10:35: Urine Color Yellow, Urine Clarity Clear, Urine pH 5.0, Ur Specific [place] 1.015, Urine Protein 30 H, Urine Glucose (UA) 1000 H, Urine Ketones 5 H, Urine Occult Blood 10 H, Urine Nitrite Negative, Urine Bilirubin Negative, Urine Urobilinogen Normal, Ur Leukocyte Esterase Negative, Urine RBC 0 SEEN, Urine WBC 0 SEEN, Ur Squamous Epith Cells 0 SEEN, Urine Bacteria 0 SEEN, Urine Mucus 0 SEEN 12/01/24 10:42: Troponin T Hi Sens 4Hr 20 12/01/24 11:28: POC Glucose 316 H Micro: Microbiology 12/01/24 08:20 Mucosa - Nose SARS-CoV-2, Influenza & RSV (PCR) - Final ABG Data ABG results: ABG 12/01/24 06:59 Specimen Type ART Sample Site L Brach pH 7.41 Bicarbonate Actual 30.4 H Total CO2 32 Base Excess 6 H O2 Saturation 99 ABG pCO2 47.8 H ABG pO2 120 H O2 Delivery Device CANNULA Vent Mode Not entered Imaging Radiology Impression Brain CT 12/01/24 06:29 IMPRESSION: No intracranial hemorrhage, mass effect or calvarial fracture. Reading Location: [facility] Cervical Spine CT 12/01/24 06:29 IMPRESSION: Motion artifact limits the evaluation particularly at C3, C5 and C6. A definite fracture or malalignment is not identified. Straightening may represent positioning or spasm. No prevertebral soft tissue swelling. Spondylosis/discogenic change appears greatest at C5-6 with severe disc space narrowing, endplate degenerative changes and posterior disc osteophyte complex again suggested with central and bilateral foraminal narrowing. Reading Location: [facility] Chest X-Ray 12/01/24 07:20 IMPRESSION: No evidence of acute disease. Reading Location: [facility] Chest CTA 12/01/24 07:59 IMPRESSION: 1. No acute pulmonary embolism. 2. Moderate cardiomegaly and trace pleural effusions, compatible with CHF/volume overload. 3. Small focal area of ground-glass nodularity within the right upper lobe, likely infectious/inflammatory etiology. Reading Location: [facility] Assessment & Plan Assessment/Plan (1) Hypoxia: PLAN: Plan 1. Acute hypoxic respiratory insufficiency ? Etiology is unclear at the moment, all workup so far is negative and there is no further workup to do, he is afebrile without a leukocytosis however given the sputum production he has been having on the outpatient side can at least obtain a sputum culture ? Will do nocturnal pulse ox to see if he needs oxygen to go home with for nighttime wear ? Talking to the friend from [place] who brought into the hospital, it appears that he is being managed by pulmonology as an outpatient for obstructive sleep apnea and what sounds like potential bronchiectasis though he is in the early stages of workup and evaluation. ? Discussed with nurse to wean his oxygen as able as he does not normally wear oxygen at rest 2. Learning disability/bipolar 1/anxiety/depression ? Continue with his home mental health medications ? Will monitor and make adjustments as necessary 3. Hyperlipidemia ? Blood pressures are stable ? Can resume his home medications 4. DM2 ? Continue with insulin ? Accu-Cheks ACHS ? Will monitor make adjustments as necessary ? Will hold his home medications 5. GERD ? Stable ? Continue with PPI DVT: Ambulation 75 minutes was spent on direct patient care, including documentation as well as chart review and collaboration with colleagues Charges/Coding Visit Charges Inpatient E&M: 91543 Init Hosp L3
--- NOTE | 2024-12-01 14:52 | CASEMGMT ---
ELENA WESLEY updated by hospitalist that patient may need home oxygen at discharge tomorrow. ELENA WESLEY in to discuss discharge planning with damaris. ELENA WESLEY reviewed DME agencies with patient, prefers [employer]. Patient also states he is interested in HHC at [facility]. Patient states he prefers [facility] and declined list at this time. ELENA WESLEY updated patient that referral will be made but would not know anything till Tuesday if patient has been accepted. ELENA WESLEY informed that patient could still discharge tomorrow and that CM would follow up with patient on Tuesday. Patient agreeable to plan and voiced appreciation. Referral made to [facility] and green sheet placed on chart for possible home oxygen at discharge.
--- NOTE | 2024-12-01 15:08 | RAD_ITS ---
PROCEDURE: KNEE 4 OR MORE VIEWS 12/01/2024 REASON FOR EXAM: KNEE PAIN AFTER FALL TECHNIQUE: 4 view(s) of the left knee COMPARISON: None FINDINGS: No acute fracture or dislocation.No effusion identified. No degenerative changes. No acute soft tissue abnormality. Vascular calcifications are present. RAD/Knee 4 or More Views IMPRESSION: 1. No acute osseous abnormality. Reading Location: [facility]
[2024-12-01 17:00] LABS: Bedside Glucose 187 mg/dL (74-106)
[2024-12-01] MEDS: RisperiDONE 2 MG Tablet 4 MG PO (21:37)
[2024-12-01] MEDS: Atorvastatin Calcium 20 MG Tablet PO (21:37)
[2024-12-01] MEDS: traZODone 100 MG Tablet PO (21:37)
[2024-12-01] MEDS: Benzonatate 100 MG Capsule PO (21:45)
[2024-12-01 22:00] LABS: Bedside Glucose 182 mg/dL (74-106)
[2024-12-02 02:00] VITALS: BP 121/85; PULSE 107; RESP 18; TEMP 37; O2SAT 95
[2024-12-02 06:00] VITALS: O2SAT 94; O2SAT 97
[2024-12-02] MEDS: Benzonatate 100 MG Capsule PO (06:15)
[2024-12-02 07:19] LABS: Absolute Neutrophil Count 5.1 X10^3/uL (2.0-7.7); Basophil# 0.04 X10^3/uL; Basophil% 0.4 % (0-1); Eosinophil# 0.22 X10^3/uL; Eosinophils% 2.4 % (0-5); Hematocrit 40.9 % (40-54); Hemoglobin 13.8 g/dL (13.0-16.5); Lymphocyte % 29.8 % (19-41); Mean Corp Hgb Conc 33.7 g/dL (32-36); Mean Corpuscular Hgb 31.1 pg (27.0-32.0); Mean Corpuscular Volume 92.1 fL (80-94); Mean Platelet Vol. 10.2 fl (6.2-12.0); Monocyte# 0.98 X10^3/uL; Monocyte% 10.8 % (0-10); NRBC Flagged by Analyzer 0 % (0-5); Neutrophil # 5.07 X10^3/uL (2.7-7.7); Neutrophil % 56.2 % (47-70); Platelet Count 213 K/mm3 (150-450); RBC Distribution Width CV 13.5 % (11.6-14.6); RBC Distribution Width SD 45.6 fl (35.1-43.9); Red Blood Count 4.44 M/mm3 (4.6-6.2); White Blood Count 9.1 K/mm3 (4.4-11.0)
[2024-12-02 07:34] LABS: Anion Gap 12 (5-15); BUN 10 mg/dL (4-19); BUN/Creat Ratio 12.7 RATIO (10-20); Carbon Dioxide 27.6 mmol/L (21.0-32.0); Chloride 100 mmol/L (98-108); Creatinine, Serum 0.77 mg/dL (0.70-1.20); EST Glomerular Filtration Rate 108 (>60); Estimated Creatinine Clearance 128.95 ml/min (50-250); Glucose 104 mg/dL (70-99); Potassium 3.8 mmol/L (3.3-5.1); Sodium Level 139 mmol/L (133-145)
[2024-12-02 09:03] VITALS: BP 144/88; PULSE 96; RESP 20; TEMP 36.6; O2SAT 97
[2024-12-02] MEDS: Senna Tablet 1 TABLET PO (09:06)
[2024-12-02] MEDS: DULoxetine Hcl 60 MG Capsule PO (09:06)
[2024-12-02] MEDS: Pantoprazole Sodium 40 MG Tablet PO (09:06)
[2024-12-02] MEDS: Insulin NPH Human 100 UNITS/ML PEN 64 UNITS SC (09:07)
[2024-12-02] MEDS: Benztropine 2 MG Tablet 1 MG PO (09:07)
--- NOTE | 2024-12-02 09:14 | NURSING ---
just spoke with CPS states the continuous pulse ox is downloading currently, when report is ready, it will be brought up to floor and placed in chart.
--- NOTE | 2024-12-02 09:31 | DCINST_ITS ---
Discharge Instructions Diet Discharge Diet: Low fat / Low cholesterol and Carb Control Diet DC O2, CPAP, BIPAP needs Home O2 Discharge instructions: No Dressing / Incision Call your doctor if you observe: Fever of 101 or Higher, Shortness of breath, Dizziness, Fainting spells, Swelling in the ankles, Chest pain and Increased palpitations (irregular heartbeat) Follow Up Care Test Results: Test results from this visit will be discussed in further detail at your follow- up appointment, if applicable. Discharge Plan Admission Admit Date/Time: 12/01/24 09:30 Attending Provider: Russell Lovett Primary Care Provider: Estevan Banks Discharge Orders/Prescriptions Prescriptions: Continued pantoprazole 40 mg tablet,delayed release (DR/EC) 40 mg PO DAILY Qty: 30 4RF atorvastatin 20 MG tablet 20 mg PO QHS trazodone 100 mg tablet 100 mg PO DAILY senna 8.6 mg Capsule 8.6 mg PO BID risperidone 4 mg tablet 4 mg PO QHS glipizide 10 mg tablet extended release 24hr 10 mg PO BID pioglitazone 45 mg tablet 45 mg PO DAILY gabapentin 800 mg tablet 800 mg PO TID benztropine 1 mg tablet 1 mg PO BID fluticasone propionate 50 mcg/actuation spray,suspension INTRANASAL metformin 500 mg tablet extended release 24 hr 1,000 mg PO BID duloxetine 60 mg capsule,delayed release(DR/EC) 60 mg PO DAILY Humulin 70/30 U-100 KwikPen 100 unit/mL (70-30) insulin pen 64 unit subcut BID Referrals / Follow Up: Estevan Banks DO [Primary Care Provider] - Within 1 Week Disposition Disposition (needs filled in before D/C Order can be placed): Home, Self Care
[2024-12-02 09:42] VITALS: O2SAT 97
--- NOTE | 2024-12-02 10:12 | NURSING ---
downtime documentation 12/02/24 12am until 7am
[2024-12-02 10:35] LABS: Bedside Glucose 109 mg/dL (74-106)
[2024-12-02 12:05] LABS: Bedside Glucose 144 mg/dL (74-106)
--- NOTE | 2024-12-02 13:31 | PCM.DC.SUM ---
Providers Date of Admission: 12/01/24 Primary Care Physician: Dr. Estevan Banks DO Reason For Visit: HYPOXIA Diagnosis Discharge Diagnosis (1) Hypoxia: Status: Acute Code(s): R09.02 - Hypoxemia Medications at Discharge Home Medications atorvastatin 20 mg tablet 20 mg PO QHS 01/26/20 pantoprazole 40 mg tablet,delayed release 40 mg PO DAILY #30 tabs 01/19/21 sennosides 8.6 mg capsule (senna) 8.6 mg PO BID 03/25/22 trazodone 100 mg tablet 100 mg PO DAILY 03/25/22 benztropine 1 mg tablet 1 mg PO BID 12/01/24 duloxetine 60 mg capsule,delayed release 60 mg PO DAILY 12/01/24 fluticasone propionate 50 mcg/actuation nasal spray,suspension spray intranasal 12/01/24 gabapentin 800 mg tablet 800 mg PO TID 12/01/24 glipizide 10 mg tablet, extended release 24 hr 10 mg PO BID 12/01/24 insulin NPH-regular 70-30 U-100 insulin 100 unit/mL subcutaneous pen (Humulin 70/30 U-100 KwikPen) 64 unit subcut BID 12/01/24 metformin 500 mg tablet,extended release 24 hr 1,000 mg PO BID 12/01/24 pioglitazone 45 mg tablet 45 mg PO DAILY 12/01/24 risperidone 4 mg tablet 4 mg PO QHS 12/01/24 Hospital Course Operations None Procedures None Summary of Care Provided Minutes Spent on Discharge: 33 Hospital Course: Per HPI: ESTEVAN KEYES, is a 53 M who presents to the hospital with altered mental status and weakness. A friend of his from [employer] was picking them up from a sleep study this morning and he was confused and altered and fell twice after the sleep study. In the ER workup was unremarkable, no leukocytosis, cervical spine CT and chest x-ray were normal CT of the chest was also unremarkable no signs of a PE. But for some reason he was hypoxic down to 70%. He does not normally wear oxygen at home home. CT of the brain was normal. Viral studies were all negative and the ABG demonstrated pCO2 of 47.8 with a pO2 of 120. Upon my evaluation he was alert and oriented and the caregiver who is at his bedside is said that this was his baseline now. He is complaining of some knee pain and this was not x-rayed in the ER so we will obtain an x-ray on the inpatient side. Hospital Course: 1. Acute hypoxic respiratory insufficiency ? Etiology is unclear at the moment, all workup so far is negative and there is no further workup to do, he is afebrile without a leukocytosis however given the sputum production he has been having on the outpatient side can at least obtain a sputum culture ? Will do nocturnal pulse ox to see if he needs oxygen to go home with for nighttime wear ? Talking to the friend from [employer] who brought into the hospital, it appears that he is being managed by pulmonology as an outpatient for obstructive sleep apnea and what sounds like potential bronchiectasis though he is in the early stages of workup and evaluation. ? Discussed with nurse to wean his oxygen as able as he does not normally wear oxygen at rest 12/02/2024: He states he is feeling much better and would like to go home today. Unfortunately attempted nocturnal trending pulse ox did not go as planned, I did not feel that it was warranted to keep him another day and delay discharge when he is feeling so well however I still am concerned that he likely has sleep apnea and some nocturnal hypoxia. The failure of the nocturnal procedure will be brought up to hospital quality to ensure that this does not happen again. 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 2. Learning disability/bipolar 1/anxiety/depression ? Continue with his home mental health medications ? Will monitor and make adjustments as necessary 3. Hyperlipidemia ? Blood pressures are stable ? Can resume his home medications 4. DM2 ? Continue with insulin ? Accu-Cheks ACHS ? Will monitor make adjustments as necessary ? Will hold his home medications 5. GERD ? Stable ? Continue with PPI Physical Exam Narrative General: Alert, Oriented x3, Cooperative, No apparent distress HEENT: Atraumatic, PERRLA, EOMI, Normocephalic Oral: Moist Mucosa Neck: Supple, No JVD Lungs: Diminished, Normal air movement, No rhonchi, No wheeze, No rales, coarse breath sounds bilaterally Cardiovascular: Regular rate, Regular Rhythm, Normal S1, Normal S2, No murmurs Abdomen: Soft, Non Tender, Non-Distended, No Hepato-splenomegaly Extremities: No edema, Capillary Refill Less than 3 Seconds Skin: No rashes, No breakdown Musculoskeletal: Mild tenderness to palpation of his medial knee on the left Neurological: No focal neurological deficits, moves all extremities, Sensory exam intact to light touch and pain Psych/Mental Status: Normal Affect, Appropriate Weight / BMI Weight Weight: 236 lb 12.423 oz Body Mass Index (BMI) 38.2 ABG / Lab / Microbiology Data 12/02/24 05:33 12/02/24 05:33 Laboratory: Laboratory Results - last 24 hr 12/01/24 16:29: POC Glucose 187 H 12/01/24 21:34: POC Glucose 182 H 12/02/24 05:33: WBC 9.1, RBC 4.44 L, Hgb 13.8, Hct 40.9, MCV 92.1, MCH 31.1, MCHC 33.7, RDW Std Deviation 45.6 H, RDW Coeff of Kary 13.5, Plt Count 213, MPV 10.2, Immature Gran % (Auto) 0.400, Neut % (Auto) 56.2, Lymph % (Auto) 29.8, Cook % (Auto) 10.8 H, Eos % (Auto) 2.4, Baso % (Auto) 0.4, Absolute Neuts (auto) 5.1, Absolute Lymphs (auto) 2.70, Nucleated RBC % 0, Sodium 139, Potassium 3.8, Chloride 100, Carbon Dioxide 27.6, Anion Gap 12, BUN 10, Creatinine 0.77, Estim Creat Clear Calc 128.95, Est GFR (MDRD) Non-Af 108, BUN/Creatinine Ratio 12.7, Glucose 104 H, Calcium 9.0 12/02/24 06:17: POC Glucose 109 H 12/02/24 11:42: POC Glucose 144 H Microbiology: Microbiology 12/01/24 08:20 Mucosa - Nose SARS-CoV-2, Influenza & RSV (PCR) - Final Radiography Diagnostic Testing: Radiology Impression Knee X-Ray 12/01/24 15:08 IMPRESSION: 1. No acute osseous abnormality. Reading Location: [facility] Instructions Discharge Diet: Low fat / Low cholesterol and Carb Control Diet Call your doctor if you observe: Fever of 101 or Higher, Shortness of breath, Dizziness, Fainting spells, Swelling in the ankles, Chest pain and Increased palpitations (irregular heartbeat) DC O2, CPAP, BIPAP Needs PSN CPAP & BiPAP: BiPAP & CPAP Settings per PSN Fraction of Inspired Oxygen ( 12/01/24 22:05 FIO2) Home O2 Discharge instructions: No Meaningful Use Info Meaningful Use Meaningful Use Diagnoses (Choose all that apply): None applicable Ischemic Stroke Statin Dosing Therapy Reference: STATIN DOSE THERAPY REFERENCE: * Patients > 75 years receive moderate or high dose statin therapy. * Patients 75 years or YOUNGER should receive HIGH intensity statin dose unless contraindicated. You will be required to document reason for non-treatment if statin daily dose does not meet guidelines. HIGH DOSE STATIN THERAPY DAILY Atorvastatin > than or = to 40 mg Rosuvastatin > than or = to 20 mg Amlodipine + Atorvastatin > than or = to 2.5/40 mg Ezetimibe + Simvastatin 10/80 mg Simvastatin 80mg Discharge Plan Admission Admit Date/Time: 12/01/24 09:30 Attending Provider: Russell Lovett Primary Care Provider: Estevan Banks Discharge Orders/Prescriptions Prescriptions: Continued pantoprazole 40 mg tablet,delayed release (DR/EC) 40 mg PO DAILY Qty: 30 4RF atorvastatin 20 MG tablet 20 mg PO QHS trazodone 100 mg tablet 100 mg PO DAILY senna 8.6 mg Capsule 8.6 mg PO BID risperidone 4 mg tablet 4 mg PO QHS glipizide 10 mg tablet extended release 24hr 10 mg PO BID pioglitazone 45 mg tablet 45 mg PO DAILY gabapentin 800 mg tablet 800 mg PO TID benztropine 1 mg tablet 1 mg PO BID fluticasone propionate 50 mcg/actuation spray,suspension INTRANASAL metformin 500 mg tablet extended release 24 hr 1,000 mg PO BID duloxetine 60 mg capsule,delayed release(DR/EC) 60 mg PO DAILY Humulin 70/30 U-100 KwikPen 100 unit/mL (70-30) insulin pen 64 unit subcut BID Referrals / Follow Up: Estevan Banks DO [Primary Care Provider] - Within 1 Week Disposition Disposition (needs filled in before D/C Order can be placed): Home, Self Care Charges/Coding Visit Charges Inpatient E&M: 32331 Disch Hosp >30min
[2024-12-02 13:52] VITALS: BP 132/102; PULSE 92; RESP 18; TEMP 36.2; O2SAT 97
--- NOTE | 2024-12-03 14:10 | CASEMGMT ---
Addendum entered by Amisha Gu 12/04/24 09:22: Pt contact, Josh, called ELENA WESLEY back in regards to HHC services. Per Josh, pt does not need HHC at this time. Pt has a follow up appointment scheduled with PCP on 12/07/24. ELENA WESLEY encouraged them to speak with PCP about HHC services at the appointment if they changed their mind. Original Note: ELENA WESLEY notified [facility] not able to accept pt. ELENA WESLEY called and left a VM for pt to call ELENA WESLEY back to discuss HHC options.
== END 2024-12-02 14:09 | disposition home or self-care (01) ==
LOC: ED 08:22 → MS3 09:56
PROVIDERS: Emergency Medicine; Admitting Provider Family Medicine; Emergency Provider Emergency Medicine; Visit Provider Family Medicine
DX: R09.02 Hypoxemia (principal); F31.9 Bipolar disorder, unspecified; E11.40 Type 2 diabetes mellitus with diabetic neuropathy, unspecified; Z79.4 Long term (current) use of insulin; R41.82 Altered mental status, unspecified; K21.9 Gastro-esophageal reflux disease without esophagitis; F41.1 Generalized anxiety disorder; I10 Essential (primary) hypertension; G47.00 Insomnia, unspecified; G47.33 Obstructive sleep apnea (adult) (pediatric); Z90.49 Acquired absence of other specified parts of digestive tract; E78.5 Hyperlipidemia, unspecified; F79 Unspecified intellectual disabilities; R29.6 Repeated falls; Z79.899 Other long term (current) drug therapy; R53.1 Weakness; R06.02 Shortness of breath; R06.89 Other abnormalities of breathing
CPT/HCPCS: 36415; 36600; 70450; 71046; 71275; 72125; 73564; 80048; 80076; 81001; 82803; 82962; 83880; 84484; 85025; 85610; 85730; 87631; 93005; 94668; 94762; 99221; 99285; Q9967; A4216; G0378